=== PATIENT | male | born 1940 | race Caucasian/White ===

== ENCOUNTER → 2023-08-10 17:41 | Outpatient (REF) | payer MEDICARE, OTHER, SELFPAY ==
[2023-08-10 18:09] LABS: % Basophils 0.6 % (0-2); % Eosinophils 1.1 % (0-6); % Immature Granulocytes 0.3 % (0-0.5); % Lymphocytes 32.2 % (20.5-51.1); % Monocytes 14.6 % (1.7-9.3); % Neutrophils 51.2 % (42.2-75.2); Absolute Basophils 0.1 10^3/uL (0-0.2); Absolute Eosinophils 0.1 10^3/uL (0-0.7); Absolute Lymphocytes 2.6 10^3/uL (1.2-3.4); Absolute Monocytes 1.2 10^3/uL (0.1-0.6); Absolute Neutrophils 4.1 10^3/uL (1.4-6.5); Hematocrit 36.4 % (39.0-52.0); Hemoglobin 12.5 g/dL (13.0-18.0); Mean Corp Hgb Conc. 34.3 g/dL (33.0-37.0); Mean Corpuscular Hgb 32.7 pg (27.0-31.0); Mean Corpuscular Volume 95.3 fL (80.0-94.0); Mean Platelet Volume 9.7 fL (7.4-10.4); Nucleated Red Blood Cells % 0 % (-); Platelet Count 197 10^3/uL (130-400); Red Blood Cell Count 3.82 10^6/uL (4.70-6.10); Red Cell Dist. Width 14.6 % (11.5-14.5); Reticulocyte Count 1.4 % (0.4-2.8); White Blood Cell Count 7.9 10^3/uL (4.8-10.8)
[2023-08-10 18:30] LABS: ALT (SGPT) 39 U/L (0-50); AST (SGOT) 32 U/L (17-59); Albumin 3.8 g/dl (3.5-5.0); Alkaline Phosphatase 84 U/L (38-126); Blood Urea Nitrogen 38 mg/dl (9-20); Calcium 9.3 mg/dl (8.4-10.2); Carbon Dioxide 24 mmol/L (22-30); Chloride 103 mmol/L (98-107); Direct Bilirubin 0.4 mg/dl (0.0-0.4); Glucose 117 mg/dl (70-99); Potassium 4.3 mmol/L (3.5-5.1); Sodium 136 mmol/L (135-145); Total Bilirubin 0.4 mg/dl (0.2-1.3); Total Protein 7.2 g/dl (6.3-8.2); eGFR 42.75
[2023-08-10 18:31] LABS: LDH 232 U/L (120-246)
[2023-08-10 18:59] LABS: TSH Reflex To Free T4 5.59 uIU/ml (0.47-4.68)
[2023-08-10 19:28] LABS: Free T4 1.05 ng/dl (0.78-2.19)
[2023-08-12 15:47] LABS: Erythropoietin (EPO) 19 mU/mL (4-27)
[2023-08-12 19:27] LABS: Haptoglobin 269 mg/dL (30-200)
[2023-08-14 01:44] LABS: Albumin 3.67 g/dL (3.75-5.01); Alpha 1 Globulin 0.43 g/dL (0.19-0.46); Alpha 2 Globulin 1.01 g/dL (0.48-1.05); Free Kappa Light Chains,Quant 76.76 mg/L (3.30-19.40); Free Lambda Light Chains,Quant 32.78 mg/L (5.71-26.30); IgA 389 mg/dL (68-408); IgG 1083 mg/dL (768-1632); IgM 42 mg/dL (35-263); Immunofixation Electrophoresis IFE Done; Kappa/Lambda Fr Light Ratio 2.34 (0.26-1.65); Total Protein-Electrophoresis 7.1 g/dL (6.3-8.2)
== END ==
LOC: REG 17:41
PROVIDERS: ATTENDING PHYSICIAN Internal Medicine Hematology & Oncology; FAMILY PHYSICIAN Family Medicine
DX: D64.9 Anemia, unspecified (principal); D72.819 Decreased white blood cell count, unspecified
CPT/HCPCS: 36415; 80053; 82248; 82668; 82784; 83010; 83521; 83615; 84155; 84165; 84439; 84443; 85025; 85045; 86334; 86880

== ENCOUNTER → 2023-08-21 13:40 | Outpatient (REF) | payer MEDICARE, OTHER, SELFPAY | LOC: DHCBC MAIN 13:40 | PROVIDERS: ATTENDING PHYSICIAN Nurse Practitioner; FAMILY PHYSICIAN Family Medicine | DX: I35.0 Nonrheumatic aortic (valve) stenosis (principal) | CPT/HCPCS: 93306 ==

== ENCOUNTER → 2023-10-14 16:26 | Outpatient (REF) | payer MEDICARE, OTHER, SELFPAY ==
[2023-10-14 18:44] LABS: PSA, Total - Diagnostic 0.39 ng/ml (0.0-4.0)
== END ==
LOC: REG 16:26
PROVIDERS: ATTENDING PHYSICIAN Surgery; FAMILY PHYSICIAN Family Medicine
DX: N40.0 Benign prostatic hyperplasia without lower urinary tract symptoms (principal)
CPT/HCPCS: 36415; 84153

== ENCOUNTER → 2024-02-12 08:02 | Outpatient (REF) | payer MEDICARE, OTHER, SELFPAY ==
[2024-02-12 09:24] LABS: ALT (SGPT) 30 U/L (0-50); AST (SGOT) 30 U/L (17-59); Albumin 4.4 g/dl (3.5-5.0); Alkaline Phosphatase 74 U/L (38-126); Blood Urea Nitrogen 31 mg/dl (9-20); Carbon Dioxide 26 mmol/L (22-30); Chloride 105 mmol/L (98-107); Glucose 97 mg/dl (70-99); Potassium 4.2 mmol/L (3.5-5.1); Sodium 141 mmol/L (135-145); Total Bilirubin 0.5 mg/dl (0.2-1.3); Total Protein 7.2 g/dl (6.3-8.2); eGFR 54.51
[2024-02-12 09:35] LABS: Vitamin D, 25-OH*** 35.8 ng/mL (30-80)
[2024-02-13 09:38] LABS: Intact PTH 49.3 pg/ml (13.6-85.8)
[2024-02-14 03:03] LABS: Creatinine, Urine per Volume 73 mg/dL; NTx 35 (21-83)
== END ==
LOC: REG 08:02
PROVIDERS: ATTENDING PHYSICIAN Orthopaedic Surgery
DX: M81.0 Age-related osteoporosis without current pathological fracture (principal); E55.9 Vitamin D deficiency, unspecified; E83.51 Hypocalcemia; E67.3 Hypervitaminosis D; N28.81 Hypertrophy of kidney
CPT/HCPCS: 36415; 80053; 82306; 82523; 83970; 84075

== ENCOUNTER → 2024-02-16 09:39 | Outpatient (REF) | payer MEDICARE, OTHER, SELFPAY | LOC: HWRAD 09:39 | PROVIDERS: ATTENDING PHYSICIAN Orthopaedic Surgery; FAMILY PHYSICIAN Family Medicine | DX: M81.0 Age-related osteoporosis without current pathological fracture (principal) | CPT/HCPCS: 77080 ==

== ENCOUNTER → 2024-07-08 06:47 | Outpatient (REF) | payer MEDICARE, OTHER, SELFPAY | LOC: PAVMRI 06:47 | PROVIDERS: ATTENDING PHYSICIAN Family Medicine | DX: M54.50 Low back pain, unspecified (principal) | CPT/HCPCS: 72148 ==

== ENCOUNTER → 2024-08-01 10:09 | Outpatient (REF) | payer MEDICARE, OTHER, SELFPAY ==
[2024-08-01 13:01] LABS: Blood Urea Nitrogen 22 mg/dl (9-20); Calcium 9.6 mg/dl (8.4-10.2); Carbon Dioxide 25 mmol/L (22-30); Chloride 102 mmol/L (98-107); Glucose 98 mg/dl (70-99); HDL Cholesterol 56 mg/dl; LDL Cholesterol, Calculated 65 mg/dl; Potassium 4.6 mmol/L (3.5-5.1); Sodium 136 mmol/L (135-145); Total Cholesterol 138 mg/dl (50-199); Triglyceride 89 mg/dl (10-149); Very Low Density Lipoprotein 17 mg/dl (0-30); eGFR > 60.00
== END ==
LOC: REG 10:09
PROVIDERS: ATTENDING PHYSICIAN Student in an Organized Health Care Education/Training Program; FAMILY PHYSICIAN Family Medicine
DX: I25.10 Atherosclerotic heart disease of native coronary artery without angina pectoris (principal); I35.0 Nonrheumatic aortic (valve) stenosis
CPT/HCPCS: 36415; 80048; 80061

== ENCOUNTER → 2024-08-23 09:46 | Outpatient (REF) | payer MEDICARE, OTHER, SELFPAY | LOC: HWRAD 09:46 | PROVIDERS: ATTENDING PHYSICIAN Surgery; FAMILY PHYSICIAN Family Medicine | DX: Z87.442 Personal history of urinary calculi (principal) | CPT/HCPCS: 74176 ==

== ENCOUNTER → 2024-09-05 10:17 | Outpatient (REF) | payer MEDICARE, OTHER, SELFPAY | LOC: RCS 10:17 | PROVIDERS: ATTENDING PHYSICIAN Student in an Organized Health Care Education/Training Program; FAMILY PHYSICIAN Family Medicine | DX: I25.10 Atherosclerotic heart disease of native coronary artery without angina pectoris (principal); I63.9 Cerebral infarction, unspecified; I49.1 Atrial premature depolarization | CPT/HCPCS: 93225; 93226 ==

== ENCOUNTER → 2025-02-28 09:02 | Outpatient (REF) | payer MEDICARE, OTHER, SELFPAY | LOC: RAD 09:02 | PROVIDERS: ATTENDING PHYSICIAN Surgery Vascular Surgery; FAMILY PHYSICIAN Family Medicine | DX: I73.9 Peripheral vascular disease, unspecified (principal) | CPT/HCPCS: 93922; 93925 ==

== ENCOUNTER → 2025-05-06 10:57 | Outpatient (REF) | payer MEDICARE, OTHER, SELFPAY | LOC: RAD 10:57 | PROVIDERS: ATTENDING PHYSICIAN Family Medicine | DX: M25.551 Pain in right hip (principal) | CPT/HCPCS: 73502 ==

== ENCOUNTER 2025-05-08 13:37 | Inpatient (IN) | payer MEDICARE, OTHER, SELFPAY ==
[2025-05-08] VITALS (13 sets, daily range): BP systolic 120–172; BP diastolic 60–93; BMI 24.8; BMI 23.9
[2025-05-08 11:18] LABS: Glucose - Point of Care 145 mg/dl (70-99)
[2025-05-08 11:26] LABS: Glucose - Point of Care 130 mg/dl (70-99)
--- NOTE | 2025-05-08 11:29 | ED.CVA ---
History of Present Illness
<Sina Hernandez PA-C - Last Filed: 05/09/25 06:39>
General
Chief Complaint: CVA/TIA Symptoms
Source: patient
Exam Limitations: none
Time Seen by Provider: 05/08/25 11:26
Onset of Stroke Symptoms
Onset of symptoms known: Yes
Date of onset of symptoms: 05/08/25
History of Present Illness
History of Present Illness:
84-year-old male presents from home with his who states that the patient started speaking with slurred speech and she noticed a right sided droop in his face. She last saw him to be normal at 915 this morning. Patient does have a history of
strokes. Patient's believes that she is on a blood thinner but is not sure which one. Patient denies any significant pain. He denies a headache or vision change. No other complaints at this time
Past History
<Sina Hernandez PA-C - Last Filed: 05/09/25 06:39>
Past History
ED Past Medical History: CAD, Hypercholesterolemia, Other (Cervical DJD, pinched nerve in his neck with intermittent 'pins and needles ' in both upper extremities. Low back pain, gastritis), Other (Stress fractures middle and upper back) and Other
(Lumbar disc disease with L3-4 L4-5 bulging disks)
ED Past Surgical History: Appendectomy, Cardiac (Stent X1) and Other (Umbilcal hernia)
Social History
Tobacco: Former smoker
Alcohol: Occasional
Personal:
Living: with family
Employment: Employed
Phy Exam
<Sina Hernandez PA-C - Last Filed: 05/09/25 06:39>
Physical Exam
Physical Exam:
General: Well-appearing male no acute distress HEENT: Normal cephalic right sided facial droop noted pupils equal round reactive extract motions are intact
Heart: Regular rate and rhythm
Lungs: Clear no wheeze
Neurologic exam: Alert and oriented to person and place. There is a right sided facial droop. There is mild aphasia and dysarthria. No obvious drift on exam visual connelly intact. He is following commands. Finger-nose intact. Xvvf-iw-[id number] intact
Skin is warm no rash
Scores
<Sina Hernandez PA-C - Last Filed: 05/09/25 06:39>
NIH Stroke Score
Level of Consciousness: 0 - Alert
LOC Questions: 0-Answers both correctly
LOC Commands: 0-Performs both correctly
Best Horizontal Gaze: 0-Normal
Visual Connelly: 0=Normal, no visual loss
Facial Palsy: 2=Partial paralysis
Motor - Right Arm: 0=No drift 10 seconds
Motor - Left Arm: 0=No drift 10 seconds
Motor - Right Le-No drift 5 seconds
Motor - Left Le-No drift 5 seconds
Limb Ataxia: 0-Absent
Sensation: 0-Normal
Best Language: 1-Mild aphasia
Dysarthria: 1-Mild slurring
Extinction and Inattention: 0-No abnormality
NIH Total Score:: 4
<Sukhwinder Bhardwaj DO - Last Filed: 05/08/25 12:43>
NIH Stroke Score
NIH Total Score:: 4
Course
<Sina Hernandez PA-C - Last Filed: 05/09/25 06:39>
Orders/Labs/Results
Orders:
Orders
05/08/25 11:27
CT BRAIN PERF STROKE ALERT Urgent
Comment:
Reason For Exam: aphasia
CT HEAD STROKE ALERT W/o Cont Urgent
Comment:
Reason For Exam: aphasia
CT HEAD/NECK ANG STROKE ALERT Urgent
Comment:
Reason For Exam: aphasia
05/08/25 11:55
Complete Blood Count/With Diff Urgent
Comprehensive Metabolic Panel Urgent
Protime/PTT Urgent
05/08/25 12:08
Electrocardiogram (*1) Urgent
Reason for Study: TIA/Stroke
EKG- Treatment ONCE
05/08/25 13:07
Aspirin 325 mg PO NOW STA
05/08/25 13:26
Admit/Transfer Patient As Directed
Co-Sign Provider:
Level of Care: Inpatient admission
Assign to:: Telemetry
Physician / Group: tu fontenot
Diagnosis: right facial droop/slurring words conc Acute CVA
Reason for Telemetry: CVA/TIA
Date to Stop Telemetry: 05/11/25
Time to Stop Telemetry: 11:00
Reason for Hospitalization: right facial droop/slurring words conc Acute CVA
Expected length of stay greater than two midnights?: Yes
ELOS- Estimated Length of Stay in days: 3
I certify the patient meets the requirements for IP care: Yes
Code Status As Directed
Resuscitation Status: Full Code
05/08/25 13:28
PRN Pain Medication Management As Directed
May give lesser potent ordered pain med per pt: Yes
preference::
Protocol:: Medication orders for pain may be administered in a
manner that supports deferring to patient preference
when the pt is:
- Requesting an ordered lesser potent pain medication.
Least to most potent pain medications are defined
as: acetaminophen < NSAID < tramadol < opioids
(morphine, oxycodone, hydromorphone).
- Requesting a lesser dose of the same medication IF
ORDERED.
- Requesting a less intrusive route of administration
if both routes are prescribed by the provider (PO <
IV).
05/08/25 14:37
Activity As Directed
Activity Level: As Tolerated
Neurological Checks As Directed
Frequency: q4h
Pneumatic Compression Sleeves As Directed
Type: Knee high
Vital Signs As Directed
Frequency: Per unit guidelines
Pt Eval And Treat Routine
Activity Level: As Tolerated
Speech Therapy Eval & Treat Routine
DX Deep Vein Thrombosis Video Routine
05/08/25 18:00
Atorvastatin [Lipitor] 20 mg PO QPM
Tamsulosin [Flomax] 0.4 mg PO QPM
05/08/25 20:00
Vit C/Vit E/Lutein/Min/Slater-3 [Ocuvite Softgel] 1 cap PO BID
05/09/25 06:00
Cardiovascular Evaluation IN AM
Complete Blood Count/With Diff IN AM
Comprehensive Metabolic Panel IN AM
Hgba1c [Glycohemoglobin (HgbA1c)] IN AM
Magnesium IN AM
Levothyroxine [Synthroid] 25 mcg PO DAILY@0600
05/09/25 08:00
Calcium Carbonate [Oscal Tomas 500] 500 mg PO DAILY
Cholecalciferol (Vitamin D3) [VITAMIN D3 (cholecalciferol)] 25 mcg PO DAILY
Clopidogrel Bisulfate [Plavix] 75 mg PO DAILY
NIFEdipine EXTENDED RELEASE [Procardia Xl (Extended Release)] 30 mg PO DAILY
omega 0-mpl-zvq-fish oil [Fish Oil] 1 ea PO DAILY
05/10/25 06:00
Complete Blood Count/With Diff IN AM
Comprehensive Metabolic Panel IN AM
05/11/25 06:00
Complete Blood Count/With Diff IN AM
Comprehensive Metabolic Panel IN AM
05/11/25 11:00
DC Protocol for Telemetry ONCE
Abnormal Lab Results
05/08/25 05/08/25 05/08/25
11:16 11:25 11:55
RBC 4.04 L 10^6/uL
(4.70-6.10)
MCV 97.3 H fL
(80.0-94.0)
MCH 33.4 H pg
(27.0-31.0)
RDW 15.0 H %
(11.5-14.5)
MPV 10.5 H fL
(7.4-10.4)
Absolute Monos (auto) 0.7 H 10^3/uL
(0.1-0.6)
Monocytes % 10.3 H %
(1.7-9.3)
BUN 21 H mg/dl
(9-20)
Glucose 129 H mg/dl
(70-99)
POC Glucose 145 H mg/dl 130 H mg/dl
(70-99) (70-99)
05/08/25 11:55
05/08/25 11:55
Vital Signs
Initial and Last Documented VS:
Initial Vital Signs
Temp Pulse Resp BP Pulse Ox
97.7 F 109 16 172/93 98
05/08/25 11:16 05/08/25 11:16 05/08/25 11:16 05/08/25 11:16 05/08/25 11:16
Last Documented Vital Signs
Temp Pulse Resp BP Pulse Ox
98.3 F 87 18 134/78 94
05/09/25 03:30 05/09/25 03:30 05/09/25 03:30 05/09/25 03:30 05/09/25 03:30
<Sukhwinder Bhardwaj, DO - Last Filed: 05/08/25 12:43>
Orders/Labs/Results
Orders:
Orders
05/08/25 11:27
CT BRAIN PERF STROKE ALERT Urgent
Comment:
Reason For Exam: aphasia
CT HEAD STROKE ALERT W/o Cont Urgent
Comment:
Reason For Exam: aphasia
CT HEAD/NECK ANG STROKE ALERT Urgent
Comment:
Reason For Exam: aphasia
05/08/25 11:55
Complete Blood Count/With Diff Urgent
Comprehensive Metabolic Panel Urgent
Protime/PTT Urgent
05/08/25 12:08
Electrocardiogram (*1) Urgent
Reason for Study: TIA/Stroke
EKG- Treatment ONCE
05/08/25 13:07
Aspirin 325 mg PO NOW STA
05/08/25 13:26
Admit/Transfer Patient As Directed
Co-Sign Provider:
Level of Care: Inpatient admission
Assign to:: Telemetry
Physician / Group: tu fontenot
Diagnosis: right facial droop/slurring words conc Acute CVA
Reason for Telemetry: CVA/TIA
Date to Stop Telemetry: 05/11/25
Time to Stop Telemetry: 11:00
Reason for Hospitalization: right facial droop/slurring words conc Acute CVA
Expected length of stay greater than two midnights?: Yes
ELOS- Estimated Length of Stay in days: 3
I certify the patient meets the requirements for IP care: Yes
Code Status As Directed
Resuscitation Status: Full Code
05/08/25 13:28
PRN Pain Medication Management As Directed
May give lesser potent ordered pain med per pt: Yes
preference::
Protocol:: Medication orders for pain may be administered in a
manner that supports deferring to patient preference
when the pt is:
- Requesting an ordered lesser potent pain medication.
Least to most potent pain medications are defined
as: acetaminophen < NSAID < tramadol < opioids
(morphine, oxycodone, hydromorphone).
- Requesting a lesser dose of the same medication IF
ORDERED.
- Requesting a less intrusive route of administration
if both routes are prescribed by the provider (PO <
IV).
05/08/25 14:37
Activity As Directed
Activity Level: As Tolerated
Neurological Checks As Directed
Frequency: q4h
Pneumatic Compression Sleeves As Directed
Type: Knee high
Vital Signs As Directed
Frequency: Per unit guidelines
Pt Eval And Treat Routine
Activity Level: As Tolerated
Speech Therapy Eval & Treat Routine
DX Deep Vein Thrombosis Video Routine
05/08/25 18:00
Atorvastatin [Lipitor] 20 mg PO QPM
Tamsulosin [Flomax] 0.4 mg PO QPM
05/08/25 20:00
Vit C/Vit E/Lutein/Min/Slater-3 [Ocuvite Softgel] 1 cap PO BID
05/09/25 06:00
Cardiovascular Evaluation IN AM
Complete Blood Count/With Diff IN AM
Comprehensive Metabolic Panel IN AM
Hgba1c [Glycohemoglobin (HgbA1c)] IN AM
Magnesium IN AM
Levothyroxine [Synthroid] 25 mcg PO DAILY@0600
05/09/25 08:00
Calcium Carbonate [Oscal Tmoas 500] 500 mg PO DAILY
Cholecalciferol (Vitamin D3) [VITAMIN D3 (cholecalciferol)] 25 mcg PO DAILY
Clopidogrel Bisulfate [Plavix] 75 mg PO DAILY
NIFEdipine EXTENDED RELEASE [Procardia Xl (Extended Release)] 30 mg PO DAILY
omega 4-wpk-zik-fish oil [Fish Oil] 1 ea PO DAILY
05/10/25 06:00
Complete Blood Count/With Diff IN AM
Comprehensive Metabolic Panel IN AM
05/11/25 06:00
Complete Blood Count/With Diff IN AM
Comprehensive Metabolic Panel IN AM
05/11/25 11:00
DC Protocol for Telemetry ONCE
Abnormal Lab Results
05/08/25 05/08/25 05/08/25
11:16 11:25 11:55
RBC 4.04 L 10^6/uL
(4.70-6.10)
MCV 97.3 H fL
(80.0-94.0)
MCH 33.4 H pg
(27.0-31.0)
RDW 15.0 H %
(11.5-14.5)
MPV 10.5 H fL
(7.4-10.4)
Absolute Monos (auto) 0.7 H 10^3/uL
(0.1-0.6)
Monocytes % 10.3 H %
(1.7-9.3)
BUN 21 H mg/dl
(9-20)
Glucose 129 H mg/dl
(70-99)
POC Glucose 145 H mg/dl 130 H mg/dl
(70-99) (70-99)
05/08/25 11:55
05/08/25 11:55
Vital Signs
Initial and Last Documented VS:
Initial Vital Signs
Temp Pulse Resp BP Pulse Ox
97.7 F 109 16 172/93 98
05/08/25 11:16 05/08/25 11:16 05/08/25 11:16 05/08/25 11:16 05/08/25 11:16
Last Documented Vital Signs
Temp Pulse Resp BP Pulse Ox
98.3 F 87 18 134/78 94
05/09/25 03:30 05/09/25 03:30 05/09/25 03:30 05/09/25 03:30 05/09/25 03:30
<Sina Hernandez PA-C - Last Filed: 05/09/25 06:39>
MDM/Problems Addressed
Differential Diagnosis Includes:
Patient presented with abrupt onset of confusion slurred speech facial droop at 915 this morning. Confirm with pharmacy that the patient is on clopidogrel and aspirin but no other anticoagulants. He was called a stroke alert upon initial
assessment and sent to CAT scan for CT of head CT angio of head and neck as well as perfusion study.
<Sina Hernandez PA-C - Last Filed: 05/09/25 06:39>
*Pulse Oximetry
SaO2: 98
Oxygen Mode of Delivery: Room air
<Sukhwinder Bhardwaj DO - Last Filed: 05/08/25 12:43>
*Pulse Oximetry
Patient hypoxic: no
*Critical Care Note
Total Time (30-74mins, 75-104mins- exclusive of procedures): 30
comment:
Critical care statement: A total of 30 minutes of critical care time was provided for this patient. This includes management of unstable vital signs, evaluation of the patient at bedside, reviewing the patient's pertinent medical records, discussion
with consultants, review of old EKGs and review of pertinent medical records. This time with separate from time utilized to perform the aforementioned documented procedures
<Sina Hernandez PA-C - Last Filed: 05/09/25 06:39>
Update Note
Update Note:
No bleed noted on plain head CT. CT angio of head and neck and perfusion study pending. Reassessed patient after CAT scan. Symptoms are now completely resolved. Facial droop is gone. He has no more aphasia or dysarthria. Neurology into the
room and assessing patient. Initially he may have been a TNK candidate based on timing and symptoms however symptoms have since resolved. Hold off on TNK for now but will admit to hospital for further stroke workup
Notified by admitting provider that the patient's symptoms may have returned. Spoke with neurology again who reevaluated the patient and feels as though he is back to baseline so that is his . Still will hold off on TNK.
ED Attending Note
<Sina Hernandez PA-C - Last Filed: 05/09/25 06:39>
-
Portions of this chart may have been created with voice recognition software.� Occasional wrong word or��sound alike� substitutions may have occurred due to the inherent limitations of voice recognition software.
<Sukhwinder Bhardwaj DO - Last Filed: 05/08/25 12:43>
ED Attending Note
Patient seen and examined by attending physician: Yes
ED Attending Note:
I have reviewed and agree with history treatment plan by Sina Hernandez PA-C. My exam revealed
Physical Exam
General: no apparent distress, not acutely ill
Neck: supple. no meningeal signs. normal posterior pharynx
Heart: s1/s2 regular rate and rhythm, no murmur. equal radial
pulses.
HEENT: Pupils equal round reactive to light, EOMI, hard of hearing
Lungs: no acute respiratory distress. clear bilaterally
Abdomen: normal bowel sounds. not tender. no CVAT
Neuro: alert and oriented. no focal neurological deficits cranial nerves II through XII intact
Skin: no rash
Psychiatric: well kept. interactive and cooperative
Extremities: no edema. no calf tenderness. negative homans. good distal pulses
84-year-old male with TIA. Symptoms resolved in the ED. He was seen on stroke alert by neurology, no acute findings on CT angiography or CT perfusion. Admit to hospitalist for further workup.
Discharge Plan
Departure
Patient Disposition: Admit
Date of Disposition: 05/08/25
Time of Disposition: 12:02
Presentation/result/management discussed w/ accepting MD/DO: Hospitalist
Discharge Problem:
Brain TIA
Interventions
Interventions:
*Risk Screen - Suicide Last Done: 05/08/25 11:16
*General Assessment Last Done: 05/08/25 11:16
*Neglect/Abuse Screening Last Done: 05/08/25 11:16
*ED COVID-19 Vaccine History Last Done: 05/08/25 11:16
*ED Influenza Vaccine History Last Done: 05/08/25 11:16
*Nursing Disposition Last Done: 05/08/25 14:39
ED- Pulmonary Assessment Last Done: 05/08/25 12:15
ED- Neurological Assessment Last Done: 05/08/25 12:05
ED- Cardiac Assessment Last Done: 05/08/25 12:15
Discharge Date and Time
Discharge Date/Time: 05/08/25 14:40
--- NOTE | 2025-05-08 11:57 | W.PN.UPDATE ---
Addendum entered and electronically signed by Farzad Prasad MD 05/08/25 15:28:
Stat H & N CTA
CTA Head: Moderate atherosclerotic calcifications of the bilateral carotid siphons with resultant mild stenosis.
CTA Neck: Atherosclerotic calcifications of the bilateral carotid bifurcation/proximal ICA with resultant approximately 30% stenosis of the proximal left ICA.
Extensive biapical pleural parenchymal scarring as well as mild emphysematous changes.
Nodules within the right upper and lower lobes measuring up to 9.9 cm which are similar in appearance to prior PET in 2022.
PE:
Gen: NAD
HEENT: hard of hearing, Chr R Eyes ptosis , Chr R angle of the mouth subtle drop. No tongue deviation on protrusion
Neck: supple , no neck bruit bilaterally
Lungs: symmetric AE
Cor: RRR
Abdomen:�soft NT
Original Note:
Update Note
Progress Note Update
This note serves as an addendum to the H&P by industrial gas servicer helper CYNTHIA�
Annie Jaroso
HPI
84M Former smoker, R hand dominant R Caudate stroke( 01/11/21) HX pHTN, CAD with stent on Plavix, HLD on Atorvastatin, Prediabetes seen at ER:
- came home from shopping at 10am and notice abnormal speech - slow and non sensical
- noted R right eye droop which report he has had that but it looks worse
- rep[orts last known normal was 915am
NIH score 4 per ER initial NIH
ROS:
denies any significant pain
denies a headache or vision change.
At ER:
Stat HCT
- No acute intracranial hemorrhage.
- There is apparent hypodensity within the left superior aspect of the abhi which may be artifactual although a subacute infarction is possible. Consider further evaluation with MRI.
Pending
Initial eval by ER:
- per ER CYNTHIA Rapidly resolving Neuro symptoms thus hold off TNK per ER HAIR DESIGNER
1310H upon hospitalist and CYNTHIA examination:
- suboptimal fluency of language function in both expressive and receptive
- difficult repeating 3-4 syllable words
- Follow motor commands accurately
- Limited comprehension
- Underlying hard of hearing
- Chr R eye ptosis per
- subtle R angle of the mouth drop - chronic per
- Hospitalist HAIR DESIGNER at bed side
1120H:
Case hospitalist dw ER CYNTHIA for Neuro re eval to reconsult Neuro in case TNK is indicated
PHX
Cardiac (Stent X1)
Hypercholesterolemia
Cervical DJD, pinched nerve in his neck with intermittent 'pins and needles ' in both upper extremities.
Low back pain, gastritis
Stress fractures middle and upper back
Lumbar disc disease with L3-4 L4-5 bulging disks
Appendectomy
Umbilical hernia
Relevant VS
Temp Pulse Resp BP Pulse Ox
97.7 F 81 20 145/87 95
05/08/25 11:16 05/08/25 11:53 05/08/25 11:53 05/08/25 11:53 05/08/25 11:53
PE
Gen: NAD
HEENT: hard of hearing, Chr R Eyes ptosis , Chr R angle of the mouth subtle drop. No tongue deviation on protrusion
Neck: supple , no neck bruit bilaterally
Lungs:
Cor:
Abdomen:�
MS:
Psych:
Hospitalist assessment INSPECTOR C[employer] WORKING at 1310 H
- suboptimal fluency of language function in both expressive and receptive
- difficult repeating 3-4 syllable words
- difficult to translate abstract ( [employer] fl[employer] targeter - he answered in word salads)
- Follow motor commands accurately
- Limited comprehension
- Underlying hard of hearing
- Chr R eye ptosis per
- subtle R angle of the mouth drop - chronic per
- Symmetric b/l motor strength
- Hospitalist CYNTHIA at bed side and her exam is the same
Relevant Data : Pending admission Data
Labs
08/01/24 05/08/25
10:50 11:55
WBC 7.0
Hgb 13.5
Plt Count 183
INR 1.09
BUN 22 H 21 H
Creatinine 1.2 1.3
eGFR > 60.00 54.17
Glucose 129 H
Stat HCT
- No acute intracranial hemorrhage.
- There is apparent hypodensity within the left superior aspect of the abhi which may be artifactual although a subacute infarction is possible.
Consider further evaluation with MRI.
Pending stat H & N CTA
Pending Brain perfusion
01/13/21 Brain MRI
8 mm acute/subacute nonhemorrhagic infarct in the tail of the caudate on the right
There is mild cortical and cerebellar atrophy with mild nonspecific white matter changes as described above.
Last hospitalist admission: 01/11/2021 - 01/13/2021
DISCHARGE DIAGNOSES:
1. Acute right caudate stroke.
2. Impaired fasting glucose.
3. Essential hypertension.
4. Coronary artery disease.
ASSESSMENT & PLAN
Stoke alert
Acute CVA suspect @ left superior aspect of the abhi
- on Plavix
- at within TNK window < 4.5 Hrs from onset - NIH 4 on arrival
- BP 145/87
- Prior HX MRI POS acute/subacute nonhemorrhagic infarct in the tail of the caudate on the R
- HX established ASCVD
- Neuro consulted - - Per ER HAIR DESIGNER due to rapidly resolved Neuro Sx - decided not to give TNK
Noted suboptimal fluency of language function in both expressive and receptive Upon Hospitalist and Hospitalist AP exam
- Reconsulted Neuro for evaluation - no interval chage
- c/w Plavix and loading dose ASA at ER
- MRI brain in AM
p HTN - currently Normotensive
- permissive BP < 220/125 post TNK
- Observe BP in ICU
HLD
- Escalade or switch to Rosuvastatin
HX CAD with stent x1
- Hold Plavix s/p TNK
Hypothyroid
- on LT4
DVT Px: SCD
Full code
IP TLM
[2025-05-08 12:06] LABS: Hematocrit 39.3 % (39.0-52.0); Hemoglobin 13.5 g/dL (13.0-18.0); Mean Corp Hgb Conc. 34.4 g/dL (33.0-37.0); Mean Corpuscular Volume 97.3 fL (80.0-94.0); Nucleated Red Blood Cells % 0 % (-); Platelet Count 183 10^3/uL (130-400); Red Cell Dist. Width 15.0 % (11.5-14.5)
[2025-05-08 12:17] LABS: INR 1.09; PT 14.4 Sec (11.4-14.6)
[2025-05-08 12:18] LABS: ALT (SGPT) 26 U/L (0-50); APTT 32.5 Sec (23.4-35.0); AST (SGOT) 27 U/L (17-59); Albumin 4.4 g/dl (3.5-5.0); Alkaline Phosphatase 71 U/L (38-126); Blood Urea Nitrogen 21 mg/dl (9-20); Calcium 9.6 mg/dl (8.4-10.2); Carbon Dioxide 27 mmol/L (22-30); Chloride 104 mmol/L (98-107); Estimated Creatinine Clearance 42 ml/min; Glucose 129 mg/dl (70-99); Potassium 4.4 mmol/L (3.5-5.1); Sodium 136 mmol/L (135-145); Total Protein 7.5 g/dl (6.3-8.2); eGFR 54.17
--- NOTE | 2025-05-08 12:21 | HPS.HSE ---
Family Physician
-
Family Physician: Krishan Uriostegui, DO
Chief Complaint
-
Right sided facial droop, slurred speech
History of Present Illness
84-year-old male from home where he lives with his who noticed at approximately 10 AM he had slurred speech with a right sided facial droop. She reports last seeing him normal at 915 this morning. He does have past medical history of strokes
and is on Plavix 75 mg daily and statin. On the ER symptoms did resolve however on my exam they have been waxing and waning with word finding, word salad, difficulty with comprehension, subtle right sided facial droop, chronic right upper eyelid
ptosis times many years from prior surgery. Patient's Cathie is at bedside confirming all information
The patient denies fever, chills, sore throat, headache, blurred vision, chest pain, palpitations, cough, shortness breath, abdominal pain, nausea, vomiting, diarrhea, urinary symptoms. 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
retinal issues, LYTTON.
Medical History
Past Medical History
Past Medical History: Reports Other
Additional Past Medical History:
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
HTN
HLD
CAD/cardiac stent x 1
Aortic stenosis status post TAV
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
Chronic low back pain
Gastritis
Stress fractures thoracic spine
Lumbar disc disease L3-L4, L4-L5
Former smoker
Right eye retinal issues per history
LYTTON
Past Surgical History: Reports Other
Additional Past Surgical History:
TAVR
Angioplasty with stent December 2017
Tonsillectomy
Appendectomy
Umbilical hernia repair
bilateral cataract extraction L1-L2 compression fracture repair 2021
Lithotripsy 2017
Social History
Tobacco: Former Smoker (Quit 38 years ago)
Alcohol: None
Personal:
Living: With Family ( )
Employment: Retired
Family History
Family History: Not pertinent
Allergies / Home Medications
Allergies reflects when Allergies were last updated in [facility].
Home Medications with original date entered in [facility]
Allergy/Medication List:
Allergies
Allergy/AdvReac Type Severity Reaction Status Date / Time
metoprolol Allergy Rash Verified 05/08/25 11:43
Sulfa (Sulfonamide Allergy 'throat Verified 10/06/22 10:02
Antibiotics) inflamed'
Home Medications
tamsulosin 0.4 mg capsule 0.4 mg PO QPM Urinary Issue 01/04/18
vitamin B complex 1 tab PO DAILY Supplement 01/04/18
vitamins A,C,H-necf-kgmwaq 4,296 mcg-226 mg-90 mg capsule (PreserVision AREDS) 1 cap PO BID Supplement 01/04/18
atorvastatin 20 mg tablet 20 mg PO QPM High cholesterol 02/27/21
omega 7-ghs-zzy-fish oil 300 mg-1,000 mg capsule (Fish Oil) 1 ea PO DAILY Supplement 02/27/21
calcium carbonate (Calcium 600) 600 mg PO DAILY Supplement 07/21/22
clopidogrel 75 mg tablet 75 mg PO DAILY #30 tabs 07/21/22
cholecalciferol (vitamin D3) 25 mcg (1,000 unit) tablet 25 mcg PO DAILY Supplement 05/08/25
ibuprofen 400 mg tablet 400 mg PO DAILYPRN PRN back pain 05/08/25
levothyroxine 25 mcg tablet 25 mcg PO DAILY Thyroid 05/08/25
meloxicam 15 mg tablet 15 mg PO DAILYPRN PRN back pain 05/08/25
mometasone 0.1 % topical cream 1 applic topical DAILYPRN PRN itchy bumps 05/08/25
nifedipine 30 mg tablet,extended release 30 mg PO DAILY Blood Pressure 05/08/25
sildenafil 100 mg tablet 100 mg PO DAILY PRN sexual activity 05/08/25
Review of Systems
-
History Source: Patient and Family ( Cathie)
A 12 point ROS was completed and negative except as noted: Yes
Constitutional: Denies Fever or Chills
EENT: Reports Other (Intermittent slurring of speech, word salad, difficulty word finding, difficulty with comprehension, chronic right eyelid ptosis, slight right corner of mouth droop); Denies Sore Throat or Runny Nose
Respiratory: Denies Cough or Trouble Breathing
Cardiac: Denies Chest Pain, Diaphoresis, Palpitations or Syncope
Abdomen/GI: Denies Abdominal Pain, Nausea, Vomiting, Diarrhea or Constipated
: Denies Dysuria, Frequency, Flank Pain or Incontinence
Musculoskeletal: Denies Joint Pain or Edema
Skin: Denies Itching or Rash
Neurological: Denies Dizzy, Headache or Weakness
Endocrine: Reports No Symptoms
Hematologic/Lymphatic: Reports No Symptoms
Psych: Reports Calm
Physical Exam
Vital Signs
Vital Signs
Temp Pulse Resp BP Pulse Ox
97.7 F 81 20 145/87 95
05/08/25 11:16 05/08/25 11:53 05/08/25 11:53 05/08/25 11:53 05/08/25 11:53
Physical Exam
General: Comfortable
HEENT: NormoCephalic, Moist mucous membranes, PERRLA (Chronic upper right lid ptosis), [place] Conjunctivae and Other (Right corner of mouth subtle droop, word salad, difficulty word finding, occasional slurred speech, difficult comprehension of
questions); No Atraumatic
Respiratory: Clear; No Wheezes, Rales or Rhonchi
Cardiac: S1/S2 and Regular Rhythm; No Murmur, Rub, Gallop or Peripheral Edema
Breast: Deferred by me
GI: Soft, Non Tender, Non Distended, Normal Bowel Sounds and No Hepatosplenomegaly
Rectal: Deferred by Provider
Genito-urinary: Deferred by me
Musculoskeletal: No Clubbing, No Cyanosis and No Edema
Skin: Warm and Dry; No Rash
Neuro: AO x 3 (With intermittent word salad, difficulty word finding, occasional slurred speech, difficult comprehension of questions), Slurred Speech, Facial Droop (Right corner of mouth) and Other (Chronic right upper eyelid ptosis, LYTTON bilateral
hearing aids in place); No Tremors or Sedated
Psych: Calm
Laboratory Results
-
05/08/25 11:55
05/08/25 11:55
Laboratory Results
PT 14.4 Sec (11.4-14.6) 05/08/25 11:55
INR 1.09 05/08/25 11:55
APTT 32.5 Sec (23.4-35.0) 05/08/25 11:55
Total Bilirubin 0.5 mg/dl (0.2-1.3) 05/08/25 11:55
AST 27 U/L (17-59) 05/08/25 11:55
ALT 26 U/L (0-50) 05/08/25 11:55
Alkaline Phosphatase 71 U/L (38-126) 05/08/25 11:55
Data Reviewed
-
CT Scan: Report Reviewed by me
Lab Data: Labs Reviewed by me
Impression/Plan
-
Impression/plan:
Admit to telemetry
# Acute CVA right cerebellum with right Facial droop/slurred speech
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
- Consult Neuro
-CTA head and neck
- Check lipid profile, HgbA1c
-Continue atorvastatin 20 mg every afternoon
-Continue Plavix 75 mg daily
-Patient given aspirin 325 mg in ER continue aspirin 81 mg daily
- PT/OT/case management
- Speech swallow eval
MRI brain at 1703 p.m.: 5 mm acute infarct right cerebellum no hemorrhage
CT head:
1. No acute intracranial hemorrhage
2. Hypodensity left superior aspect of abhi which could be subacute infarct
CTA Head: Moderate atherosclerotic calcifications of the bilateral carotid siphons with resultant mild stenosis.
CTA Neck: Atherosclerotic calcifications of the bilateral carotid bifurcation/proximal ICA with resultant approximately
30% stenosis of the proximal left ICA.
Extensive biapical pleural parenchymal scarring as well as mild emphysematous changes.
Nodules within the right upper and lower lobes measuring up to 9.9 cm which are similar in appearance to prior PET in 2022.
2D echo 08/21/2023: EF 55 to 60%, mild RV enlargement, status post TAVR
#Known pulmonary nodules right upper lobe
#Emphysema�mild
#HTN�benign
Continue nifedipine 30 mg daily
#HLD
cont lipitor 20 mg hs, check lipid profile
#CAD/cardiac stent x 1
cont statin, plavix, nifedipine
#Aortic stenosis status post TAVR
#BPH
Continue tamsulosin
#Gastritis
cont calcium carbonate
#Hypothyroidism
cont levothyroxine 25 meq
Other PMH:
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
Chronic low back pain
Stress fractures thoracic spine
Lumbar disc disease L3-L4, L4-L5
Former smoker
right eye retinal issues-continue PreserVision
LYTTON
DVT prophylaxis
SCDs
FULL code
--- NOTE | 2025-05-08 13:48 | EDCM ---
Reviewed chart , met with pt and bedside in ED. They live in 2 SH, 1 [address], full bath on first floor, full flight to second floor bedroom.
Independent in ADLs, personal care and ambulation at baseline. No assistive devices, only DME is BP cuff.
Confirms prescription coverage.
No hx VN or SNF.
PCP: Krishan Uriostegui
Pharmacy: [facility]
Disposition pending ongoing medical evaluation, CM will continue to follow for all discharge planning needs.
[2025-05-08] MEDS: ASPIRIN 325 MG PO (14:16)
--- NOTE | 2025-05-08 15:31 | CON.NEURO4 ---
Consultation - Neurology 4
-
CONSULTING PHYSICIAN: Dr. Mick Lin
REFERRING PHYSICIAN: Annie MCHUGH
DICTATED BY: Dr. Mick Lin
DATE/TIME OF REQUEST: 05/08/2025
DATE/TIME OF CONSULTATION: 05/08/2025
Reason for Consultation: Right-sided facial droop and slurred speech.
ASSESSMENT AND PLAN:
The patient is an 84 years old male who presented to the hospital after his noted that at approximately 10 AM the morning he developed slurred speech and also had a right-sided facial droop. The last known normal was at around 9:15 AM this
morning. In the ER the patient symptoms resolved however he kept having waxing and waning difficulty with word finding but he returned to his baseline. The patient's also thinks that he has returned to his baseline.
. MRI of the brain showed a 5 mm acute, nonhemorrhagic infarct in the right cerebellar hemisphere medially.
The patient had a small 5 mm acute, nonhemorrhagic infarct in the right cerebellar hemisphere medially.
The patient was not a candidate for thrombolytic therapy as his NIHSS was 0.
I had a detailed discussion with the patient and his regarding the assessment and management plan and they verbalized understanding of our discussion.
. CT of the head did not show an acute intracranial abnormality.
. CTA of the head and neck did not show a large vessel occlusion.
. The patient will be on the stroke pathway and he will be on aspirin 81 mg daily, Plavix 75 mg daily and atorvastatin 40 mg daily. The patient also received 300 mg of clopidogrel x 1 and 325 mg of aspirin x 1.
. Echocardiogram.
History of Present Illness:
The patient is an 84 years old male who presented to the hospital after his noted that at approximately 10 AM the morning he developed slurred speech and also had a right-sided facial droop. The last known normal was at around 9:15 AM this
morning. In the ER the patient symptoms resolved however he kept having waxing and waning difficulty with word finding but he returned to his baseline. The patient's also thinks that he has returned to his baseline.
Past Medical History:
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
HTN
HLD
CAD/cardiac stent x 1
TAVR
Review of System
The patient denies headache, dizziness, chest pain, shortness of breath, fever, chills, nausea, vomiting and diarrhea.
Neurologic Examination:
The patient is alert and oriented x 3,
Speech is clear,
The cranial nerves II to XII are grossly intact, the visual irby are full,
The motor strength is grossly 5/5 bilaterally,
Sensations are intact bilaterally,
The cerebellar examination does not show limb ataxia.
Vital Signs and Labs
-
Vital Signs and Labs:
Vital Signs
Temp Pulse Resp BP Pulse Ox
36.6 C 72 18 163/87 96
05/08/25 15:12 05/08/25 15:12 05/08/25 15:12 05/08/25 15:12 05/08/25 15:12
Lab Results
05/08/25 11:55
05/08/25 11:55
PT 14.4 Sec (11.4-14.6) 05/08/25 11:55
INR 1.09 05/08/25 11:55
APTT 32.5 Sec (23.4-35.0) 05/08/25 11:55
Sodium 136 mmol/L (135-145) 05/08/25 11:55
Potassium 4.4 mmol/L (3.5-5.1) 05/08/25 11:55
BUN 21 mg/dl (9-20) H 05/08/25 11:55
Glucose 129 mg/dl (70-99) H 05/08/25 11:55
Calcium 9.6 mg/dl (8.4-10.2) 05/08/25 11:55
Medications
-
Active Medications
Generic Name Dose Route Start Last Admin
Trade Name Freq PRN Reason Stop Dose Admin
Acetaminophen 650 mg 05/08/25 16:53
Acetaminophen 325 Mg Tablet PO 06/05/25 16:52
Q6HPRN PRN
mild pain/ fever>100.5F
Aspirin 81 mg 05/09/25 08:00
Aspirin 81 Mg Chewable Tablet PO 06/06/25 07:59
DAILY KARLIE
Atorvastatin Calcium 20 mg 05/08/25 18:00 05/08/25 17:32
Atorvastatin (Lipitor) 20 Mg Tablet PO 06/05/25 17:59 20 mg
QPM KARLIE Administration
Calcium Carbonate 500 mg 05/09/25 08:00
Calcium Carbonate 500 Mg Tablet PO 06/06/25 07:59
DAILY KARLIE
Cholecalciferol 25 mcg 05/09/25 08:00
Cholecalciferol (Vitamin D3) 25 Mcg Tablet (1,000 Units) PO 06/06/25 07:59
DAILY KARLIE
Clopidogrel Bisulfate 75 mg 05/09/25 08:00
Clopidogrel 75 Mg Tablet PO 06/06/25 07:59
DAILY KARLIE
Levothyroxine Sodium 25 mcg 05/09/25 06:00
Levothyroxine 25 Mcg Tablet PO 06/06/25 05:59
DAILY@0600 KARLIE
Nifedipine 30 mg 05/09/25 08:00
Nifedipine 30 Mg Extended Release Tablet PO 06/06/25 07:59
DAILY KARLIE
Sodium Chloride 0 flush 05/08/25 15:00
Sodium Chloride 0.9% (Flush) Syringe IV 06/05/25 14:59
PER PROTOCOL KARLIE
Sodium Chloride 0 flush 05/08/25 15:00
Sodium Chloride 0.9% (Flush) Syringe IV 06/05/25 14:59
PER PROTOCOL KARLIE
Tamsulosin HCl 0.4 mg 05/08/25 18:00 05/08/25 17:32
Tamsulosin 0.4 Mg Capsule PO 06/05/25 17:59 0.4 mg
QPM KARLIE Administration
Vitamin C/Vitamin E 1 cap 05/08/25 20:00
Vit C/Vit E/Lutein/Min/[place]-3 (Ocuvite) Capsule PO 06/05/25 19:59
BID KARLIE
Home Medications
�Medication �Instructions �Recorded
tamsulosin 0.4 mg capsule 0.4 mg PO QPM Urinary Issue 01/04/18
vitamin B complex 1 tab PO DAILY Supplement 01/04/18
vitamins A,C,H-jqki-rdnrgm 4,296 1 cap PO BID Supplement 01/04/18
mcg-226 mg-90 mg capsule
(PreserVision AREDS)
atorvastatin 20 mg tablet 20 mg PO QPM High cholesterol 02/27/21
omega 3-dgs-iwj-fish oil 300 1 ea PO DAILY Supplement 02/27/21
mg-1,000 mg capsule (Fish Oil)
calcium carbonate (Calcium 600) 600 mg PO DAILY Supplement 07/21/22
clopidogrel 75 mg tablet 75 mg PO DAILY #30 tabs 07/21/22
cholecalciferol (vitamin D3) 25 25 mcg PO DAILY Supplement 05/08/25
mcg (1,000 unit) tablet
ibuprofen 400 mg tablet 400 mg PO DAILYPRN PRN back pain 05/08/25
levothyroxine 25 mcg tablet 25 mcg PO DAILY Thyroid 05/08/25
meloxicam 15 mg tablet 15 mg PO DAILYPRN PRN back pain 05/08/25
mometasone 0.1 % topical cream 1 applic topical DAILYPRN PRN 05/08/25
itchy bumps
nifedipine 30 mg tablet,extended 30 mg PO DAILY Blood Pressure 05/08/25
release
sildenafil 100 mg tablet 100 mg PO DAILY PRN sexual activity 05/08/25
[2025-05-08] MEDS: PLAVIX 300 MG PO (16:52)
[2025-05-08] MEDS: LIPITOR 20 MG PO (17:32)
[2025-05-08] MEDS: TYLENOL 1000 MG PO (17:32)
[2025-05-08] MEDS: FLOMAX 0.4 MG PO (17:32)
[2025-05-08] MEDS: OCUVITE SOFTGEL 1 CAP PO (19:51)
[2025-05-09] VITALS (7 sets, daily range): BP systolic 117–134; BP diastolic 65–92; PULSE 84
[2025-05-09] MEDS: SYNTHROID 25 MCG PO (05:57)
[2025-05-09 08:00] LABS: Hematocrit 35.7 % (39.0-52.0); Hemoglobin 12.4 g/dL (13.0-18.0); Mean Corp Hgb Conc. 34.7 g/dL (33.0-37.0); Mean Corpuscular Volume 96.2 fL (80.0-94.0); Nucleated Red Blood Cells % 0 % (-); Platelet Count 163 10^3/uL (130-400); Red Cell Dist. Width 14.4 % (11.5-14.5)
[2025-05-09 08:52] LABS: ALT (SGPT) 22 U/L (0-50); AST (SGOT) 22 U/L (17-59); Albumin 3.7 g/dl (3.5-5.0); Alkaline Phosphatase 73 U/L (38-126); Blood Urea Nitrogen 15 mg/dl (9-20); Calcium 9.1 mg/dl (8.4-10.2); Carbon Dioxide 24 mmol/L (22-30); Chloride 104 mmol/L (98-107); Estimated Creatinine Clearance 52 ml/min; Glucose 90 mg/dl (70-99); HDL Cholesterol 50 mg/dl; LDL Cholesterol, Calculated 52 mg/dl; Magnesium 2.0 mg/dl (1.6-2.3); Potassium 4.1 mmol/L (3.5-5.1); Sodium 133 mmol/L (135-145); Total Protein 6.5 g/dl (6.3-8.2); Very Low Density Lipoprotein 16 mg/dl (0-30); eGFR > 60.00
[2025-05-09] MEDS: PROCARDIA XL (EXTENDED RELEASE) 30 MG PO (10:23)
[2025-05-09] MEDS: LOW STRENGTH ASPIRIN 81 MG PO (10:23)
[2025-05-09] MEDS: PLAVIX 75 MG PO (10:24)
[2025-05-09] MEDS: VITAMIN D3 (cholecalciferol) 25 MCG PO (10:24)
[2025-05-09] MEDS: OSCAL CAL 500 500 MG PO (10:24)
[2025-05-09] MEDS: OCUVITE SOFTGEL 1 CAP PO ×2 (10:24→19:37)
[2025-05-09 10:25] LABS: Glycohemoglobin (HgbA1c) 5.8 % (4.0-5.9)
--- NOTE | 2025-05-09 12:11 | PTOTSP ---
Speech Therapy Evaluation:
Pt presents w/ acute (CVA) and chronic (R caudate CVA, former smoker) risk factors for aspiration/dysphagia. However, no reports of difficulty w/ oral intake, no overt s/sx of aspiration observed during bedside swallow evaluation, pt is on room air,
WBC WNL, and no reported hx of PNAs. ST to F/U to monitor diet level tolerance and pt presentation given acute CVA.
Renny Cognitive Assessment administered to further assess cognitive domains. Pt's score of 19/30 indicates a moderate cognitive impairment, with noted deficits in immediate and delayed recall, executive functioning, and language fluency.
Assessment results potentially impacted as pt is DEERING. Of note, this is a decline in cognitive function compared to score of 21/21 on BCAT in 2020.
Recommendations:
1. Regulars, Thins
2. Medications as best tolerated
3. Strategies: Slow rate, alternating sips and bites
4. F/U w/ ST at the acute care level to observe diet level tolerance and for further cognitive-linguistic assessment/treatment.
--- NOTE | 2025-05-09 12:25 | W.PN.HOSP.TC ---
Today's Communication/Plan
-
DC post echo
Assessment / Plan
Assessment / Plan
HEAD CT 05/08
IMPRESSION:
No acute intracranial hemorrhage.
There is apparent hypodensity within the left superior aspect of the abhi which may be artifactual although a subacute infarction is possible. Consider further evaluation with MRI.
HEAD/NECK CTA 05/08
IMPRESSION:
CTA Head: Moderate atherosclerotic calcifications of the bilateral carotid siphons with resultant mild stenosis.
CTA Neck: Atherosclerotic calcifications of the bilateral carotid bifurcation/proximal ICA with resultant approximately 30% stenosis of the proximal left ICA.
Extensive biapical pleural parenchymal scarring as well as mild emphysematous changes. Nodules within the right upper and lower lobes measuring up to 9.9 cm which are similar in appearance to prior PET in 2022.
Brain MRI 05/08
IMPRESSION:
5 mm acute, nonhemorrhagic infarct in the right cerebellar hemisphere medially. No other acute infarct identified.
Cerebral atrophy along with evidence of chronic small vessel ischemia in cerebral white matter and abhi.
Right Cerebellar ischemic infarct
Dysarthria - now resolved
-patient was on Plavix 75mg PO QD at home
-tele with SVT, no afib
-TTE ordered, also discussing with Cardiology arrangement of outpatient monitor versus Linq
-continue dual antiPLT (for 3 weeks) then daily Plavix
-increase Lipitor to 40mg
-PT/OT/ST - no needs
Known pulmonary nodules right upper lobe
Essential HTN - [employer] Nifedipine
HLD - increase Lipitor
CAD
Hx PCI
-DU[employer] Plavix/Statin
Aortic Stenosis s/p TAVR
BPH - [employer] Flomax
Hypothyroidism - [employer] Synthroid
Other PMH:
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
Chronic low back pain
Stress fractures thoracic spine
Lumbar disc disease L3-L4, L4-L5
Former smoker
right eye retinal issues-continue PreserVision
[place]
possible DC later today or tomorrow
Anticipated Discharge: Within 24 hours
Subjective/Interval History
-
Date of Service: May 09, 2025
speech deficits resolved
ambulating OK
Objective Data
-
Labs:
Laboratory Results
05/09/25
06:48
WBC 6.0
Hgb 12.4 L
Hct 35.7 L
Plt Count 163
Sodium 133 L
Potassium 4.1
Chloride 104
Carbon Dioxide 24
BUN 15
Creatinine 1.1
Glucose 90
Calcium 9.1
Total Bilirubin 0.5
AST 22
ALT 22
Alkaline Phosphatase 73
Vital Signs:
Vital Signs
Temp Pulse Resp BP Pulse Ox
98.0 F 51 17 121/67 97
05/09/25 11:09 05/09/25 11:09 05/09/25 11:09 05/09/25 11:09 05/09/25 11:09
I&O
05/08/25 05/09/25 05/10/25
06:59 06:59 06:59
Intake Total 480 / 480
Balance 480 / 480
Review of Systems
-
History Source: Patient
All other systems: Reviewed and negative
Physical Exam
-
General: No Apparent Distress
HEENT: PERRLA
Respiratory: Clear to Auscultation; Negative Wheezes
Cardiac: Regular Rhythm and S1/S2
GI: Soft and Nontender
Musculoskeletal: No Edema
Skin: Warm
Neuro: AO x 3 and Other (mild right sided ptosis and facial asymmetry (chronic), no pronator drift, no ataxia )
Psych: Calm
Data Reviewed
-
Diagnostic Radiology: Report Reviewed by me
Labs: Labs Reviewed by me
[2025-05-09 12:44] LABS: Ferritin 50.1 ng/ml (17.9-464.0)
[2025-05-09 12:59] LABS: Vitamin B12 > 1000 pg/ml (239-931)
--- NOTE | 2025-05-09 15:13 | CM ---
Spoke with in room.
Cathie and patient are waiting on MD decision when he can be discharge .
PT eval done indicated no needs .
Offered VN declined need. She will drive him home at pr.
PLAN Home no needs
[2025-05-09 15:21] LABS: Folate 6.6 ng/ml (2.76-20)
--- NOTE | 2025-05-09 17:20 | W.PN.NEURO.1 ---
Today's Communication / Plan
-
. The patient will be on the stroke pathway and he will be on aspirin 81 mg daily, Plavix 75 mg daily and atorvastatin 40 mg daily.
. Recommend 30-day Holter monitor at the time of discharge.
. Follow-up with neurology in 4 to 6 weeks.
. Will sign off. Please call if you have any question.
Subjective/Objective
Subjective Data
Date of Service: May 09, 2025
The patient is an 84 years old male with a past medical history of TAVR, hypertension, hyperlipidemia, coronary artery disease and CVA, who presented to the hospital after his noted that at approximately 10 AM yesterday morning on 05/08/2025,
he developed slurred speech and also had a right-sided facial droop. The last known normal was at around 9:15 AM on 05/08/2025. In the ER the patient symptoms resolved however he kept having waxing and waning difficulty with word finding but he
returned to his baseline. The patient's also thinks that he has returned to his baseline.
. MRI of the brain showed a 5 mm acute, nonhemorrhagic infarct in the right cerebellar hemisphere medially.
. The echocardiogram was done today that showed a LVEF of 55 to 60%.
The patient had a small 5 mm acute, nonhemorrhagic infarct in the right cerebellar hemisphere medially.
The patient was not a candidate for thrombolytic therapy as his NIHSS was 0.
I had a detailed discussion with the patient and his regarding the assessment and management plan and they verbalized understanding of our discussion.
. CT of the head did not show an acute intracranial abnormality.
. CTA of the head and neck did not show a large vessel occlusion.
. The patient will be on the stroke pathway and he will be on aspirin 81 mg daily, Plavix 75 mg daily and atorvastatin 40 mg daily.
. Recommend 30-day Holter monitor at the time of discharge.
. Follow-up with neurology in 4 to 6 weeks.
. Will sign off. Please call if you have any question.
Objective Data
Vital Signs
Temp Pulse Resp BP Pulse Ox
37.2 C 84 18 117/65 95
05/09/25 15:19 05/09/25 15:19 05/09/25 15:19 05/09/25 15:19 05/09/25 15:19
Lab Results
05/09/25 06:48
05/09/25 06:48
PT 14.4 Sec (11.4-14.6) 05/08/25 11:55
INR 1.09 05/08/25 11:55
APTT 32.5 Sec (23.4-35.0) 05/08/25 11:55
Sodium 133 mmol/L (135-145) L 05/09/25 06:48
Potassium 4.1 mmol/L (3.5-5.1) 05/09/25 06:48
BUN 15 mg/dl (9-20) 05/09/25 06:48
Glucose 90 mg/dl (70-99) 05/09/25 06:48
Calcium 9.1 mg/dl (8.4-10.2) 05/09/25 06:48
LDL Cholesterol, Calc 52 mg/dl 05/09/25 06:48
Vitamin B12 > 1000 pg/ml (239-931) H 05/09/25 06:48
Patient Allergies
metoprolol Allergy (Verified 05/08/25 11:43)
Rash
Sulfa (Sulfonamide Antibiotics) Allergy (Verified 10/06/22 10:02)
'throat inflamed'
Vital Signs and Labs
-
Vital Signs and Labs:
Vital Signs
Temp Pulse Resp BP Pulse Ox
37.2 C 84 18 117/65 95
05/09/25 15:19 05/09/25 15:19 05/09/25 15:19 05/09/25 15:19 05/09/25 15:19
Lab Results
05/09/25 06:48
05/09/25 06:48
PT 14.4 Sec (11.4-14.6) 05/08/25 11:55
INR 1.09 05/08/25 11:55
APTT 32.5 Sec (23.4-35.0) 05/08/25 11:55
Sodium 133 mmol/L (135-145) L 05/09/25 06:48
Potassium 4.1 mmol/L (3.5-5.1) 05/09/25 06:48
BUN 15 mg/dl (9-20) 05/09/25 06:48
Glucose 90 mg/dl (70-99) 05/09/25 06:48
Calcium 9.1 mg/dl (8.4-10.2) 05/09/25 06:48
LDL Cholesterol, Calc 52 mg/dl 05/09/25 06:48
Vitamin B12 > 1000 pg/ml (239931) H 05/09/25 06:48
Medications
-
Active Medications
Generic Name Dose Route Start Last Admin
Trade Name Freq PRN Reason Stop Dose Admin
Acetaminophen 650 mg 05/08/25 16:53
Acetaminophen 325 Mg Tablet PO 06/05/25 16:52
Q6HPRN PRN
mild pain/ fever>100.5F
Aspirin 81 mg 05/09/25 08:00 05/09/25 10:23
Aspirin 81 Mg Chewable Tablet PO 06/06/25 07:59 81 mg
DAILY KARLIE Administration
Atorvastatin Calcium 40 mg 05/09/25 18:00
Atorvastatin (Lipitor) 40 Mg Tablet PO 06/06/25 17:59
QPM KARLIE
Calcium Carbonate 500 mg 05/09/25 08:00 05/09/25 10:24
Calcium Carbonate 500 Mg Tablet PO 06/06/25 07:59 500 mg
DAILY KARLIE Administration
Cholecalciferol 25 mcg 05/09/25 08:00 05/09/25 10:24
Cholecalciferol (Vitamin D3) 25 Mcg Tablet (1,000 Units) PO 06/06/25 07:59 25 mcg
DAILY KARLEI Administration
Clopidogrel Bisulfate 75 mg 05/09/25 08:00 05/09/25 10:24
Clopidogrel 75 Mg Tablet PO 06/06/25 07:59 75 mg
DAILY KARLIE Administration
Levothyroxine Sodium 25 mcg 05/09/25 06:00 05/09/25 05:57
Levothyroxine 25 Mcg Tablet PO 06/06/25 05:59 25 mcg
DAILY@0600 KARLIE Administration
Nifedipine 30 mg 05/09/25 08:00 05/09/25 10:23
Nifedipine 30 Mg Extended Release Tablet PO 06/06/25 07:59 30 mg
DAILY KARLIE Administration
Sodium Chloride 0 flush 05/08/25 15:00
Sodium Chloride 0.9% (Flush) Syringe IV 06/05/25 14:59
PER PROTOCOL KARLIE
Sodium Chloride 0 flush 05/08/25 15:00
Sodium Chloride 0.9% (Flush) Syringe IV 06/05/25 14:59
PER PROTOCOL KARLIE
Tamsulosin HCl 0.4 mg 05/08/25 18:00 05/08/25 17:32
Tamsulosin 0.4 Mg Capsule PO 06/05/25 17:59 0.4 mg
QPM KARLIE Administration
Vitamin C/Vitamin E 1 cap 05/08/25 20:00 05/09/25 10:24
Vit C/Vit E/Lutein/Min/[place]-3 (Ocuvite) Capsule PO 06/05/25 19:59 1 cap
BID KARLIE Administration
Home Medications
�Medication �Instructions �Recorded
tamsulosin 0.4 mg capsule 0.4 mg PO QPM Urinary Issue 01/04/18
vitamin B complex 1 tab PO DAILY Supplement 01/04/18
vitamins A,C,J-nnfc-hhxzoj 4,296 1 cap PO BID Supplement 01/04/18
mcg-226 mg-90 mg capsule
(PreserVision AREDS)
omega 5-qoy-cyw-fish oil 300 1 ea PO DAILY Supplement 02/27/21
mg-1,000 mg capsule (Fish Oil)
calcium carbonate (Calcium 600) 600 mg PO DAILY Supplement 07/21/22
clopidogrel 75 mg tablet 75 mg PO DAILY #30 tabs 07/21/22
cholecalciferol (vitamin D3) 25 25 mcg PO DAILY Supplement 05/08/25
mcg (1,000 unit) tablet
levothyroxine 25 mcg tablet 25 mcg PO DAILY Thyroid 05/08/25
mometasone 0.1 % topical cream 1 applic topical DAILYPRN PRN 05/08/25
itchy bumps
nifedipine 30 mg tablet,extended 30 mg PO DAILY Blood Pressure 05/08/25
release
sildenafil 100 mg tablet 100 mg PO DAILY PRN sexual activity 05/08/25
aspirin 81 mg chewable tablet 81 mg PO DAILY #19 tabs 05/09/25
atorvastatin 20 mg tablet 40 mg (2 x 20 mg) PO QPM High 05/09/25
cholesterol #30 tabs
[2025-05-09] MEDS: LIPITOR 40 MG PO (17:27)
[2025-05-09] MEDS: FLOMAX 0.4 MG PO (17:27)
[2025-05-09] MEDS: TYLENOL 650 MG PO (19:38)
[2025-05-10 03:37] VITALS: BP 122/73
[2025-05-10] MEDS: SYNTHROID 25 MCG PO (05:25)
[2025-05-10 06:26] LABS: Hematocrit 36.7 % (39.0-52.0); Hemoglobin 12.5 g/dL (13.0-18.0); Mean Corp Hgb Conc. 34.1 g/dL (33.0-37.0); Mean Corpuscular Volume 95.1 fL (80.0-94.0); Nucleated Red Blood Cells % 0 % (-); Platelet Count 163 10^3/uL (130-400); Red Cell Dist. Width 14.5 % (11.5-14.5)
[2025-05-10 07:05] LABS: ALT (SGPT) 21 U/L (0-50); AST (SGOT) 21 U/L (17-59); Albumin 3.7 g/dl (3.5-5.0); Alkaline Phosphatase 71 U/L (38-126); Blood Urea Nitrogen 19 mg/dl (9-20); Calcium 9.0 mg/dl (8.4-10.2); Carbon Dioxide 24 mmol/L (22-30); Chloride 105 mmol/L (98-107); Estimated Creatinine Clearance 52 ml/min; Glucose 98 mg/dl (70-99); Potassium 4.0 mmol/L (3.5-5.1); Sodium 134 mmol/L (135-145); Total Protein 6.5 g/dl (6.3-8.2); eGFR > 60.00
[2025-05-10 07:55] VITALS: BP 105/71
--- NOTE | 2025-05-10 09:20 | PN.CDI ---
CDI
- -
CDI:
Physician Documentation Request
Admit Date: 05/08/25 13:37
Dear Doctor Laith,
Please review the following and provide your response in the progress notes.
Clinical Indicators:
Pt admitted with Right Cerebellar ischemic infarct
Sodium levels are as below
Laboratory Tests
05/09/25 05/10/25
06:48 05:26
Sodium 133 L 134 L
Based on the above, could you clarify in the progress notes, the appropriate diagnosis, if significant, that supports the above abnormalities and additional evaluation, monitoring and/or treatment rendered:
Hyponatremia
Abnormal lab value
Other ( please specify)
Use of terms such as suspected, likely, concern for, or probable (associated with a specific diagnosis that is being evaluated, monitored, or treated as if it exists) are acceptable and can be coded in the inpatient setting, when documented at the
time of discharge.
Thank you,
Shanice Perla RN
CDI Specialist
[place] [facility]
Please use your independent medical judgment in providing your response.
[2025-05-10] MEDS: LOW STRENGTH ASPIRIN 81 MG PO (10:01)
[2025-05-10] MEDS: PROCARDIA XL (EXTENDED RELEASE) 30 MG PO (10:01)
[2025-05-10] MEDS: VITAMIN D3 (cholecalciferol) 25 MCG PO (10:01)
[2025-05-10] MEDS: OCUVITE SOFTGEL 1 CAP PO (10:01)
[2025-05-10] MEDS: PLAVIX 75 MG PO (10:01)
[2025-05-10] MEDS: OSCAL CAL 500 500 MG PO (10:01)
--- NOTE | 2025-05-10 11:51 | W.DS.TRANS ---
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
-
Discharge Instructions:
Discharge Diagnosis/Procedures right 5mm cerebellar stroke
Diet Low Cholesterol
Activity As tolerated
Driving Restrictions Not until seen by your Dr
Bathing Restrictions None
Others Tests Outpatient cardiac monitoring was recommended.
This is being arranged by your cardiology office
. You will receive a phone call
Instructions:
Stand-Alone Forms:
Changes to Home Medications: Yes
Discharge Medications:
DC Medications w/original date entered in [employer]
tamsulosin 0.4 mg capsule 0.4 mg PO QPM Urinary Issue 01/04/18
vitamin B complex 1 tab PO DAILY Supplement 01/04/18
vitamins A,C,V-xtcv-jqviql 4,296 mcg-226 mg-90 mg capsule (PreserVision AREDS) 1 cap PO BID Supplement 01/04/18
omega 5-mkc-alz-fish oil 300 mg-1,000 mg capsule (Fish Oil) 1 ea PO DAILY Supplement 02/27/21
calcium carbonate (Calcium 600) 600 mg PO DAILY Supplement 07/21/22
clopidogrel 75 mg tablet 75 mg PO DAILY #30 tabs 07/21/22
cholecalciferol (vitamin D3) 25 mcg (1,000 unit) tablet 25 mcg PO DAILY Supplement 05/08/25
levothyroxine 25 mcg tablet 25 mcg PO DAILY Thyroid 05/08/25
mometasone 0.1 % topical cream 1 applic topical DAILYPRN PRN itchy bumps 05/08/25
nifedipine 30 mg tablet,extended release 30 mg PO DAILY Blood Pressure 05/08/25
sildenafil 100 mg tablet 100 mg PO DAILY PRN sexual activity 05/08/25
aspirin 81 mg chewable tablet 81 mg PO DAILY #19 tabs 05/09/25
atorvastatin 20 mg tablet 40 mg (2 x 20 mg) PO QPM High cholesterol #30 tabs 05/09/25
Home Medication Changes
Take aspirin 81mg daily with Plavix x 18 more days (3 weeks total)
Continue Plavix 75mg daily
Do not take NSAIDs (motrin, Meloxicam, Ibuprofen, Advil) while on aspirin and Plavix
Increase Lipitor from 20mg in evenings to 40mg in evenings
Pending Results: No
[2025-05-10 11:55] VITALS: BP 102/64
--- NOTE | 2025-05-10 12:05 | CM ---
Chart reviewed. Patient stable for d/c home today
Met w/ patient and spouse bedside, agreeable to d/c. Declined HC services. Spouse agreeable to ST script per ST recommendation
TT hospitalist for script
IMM verbally reviewed, copy provided, copy on chart
Plan: Home, OP ST
--- NOTE | 2025-05-10 13:13 | W.PN.HOSP.TC ---
Addendum entered and electronically signed by Sophie Ozuna MD 05/10/25 15:21:
Hyponatremia
-stable
Original Note:
Today's Communication/Plan
-
OK for DC home today
Assessment / Plan
Assessment / Plan
HEAD CT 05/08
IMPRESSION:
No acute intracranial hemorrhage.
There is apparent hypodensity within the left superior aspect of the abhi which may be artifactual although a subacute infarction is possible. Consider further evaluation with MRI.
HEAD/NECK CTA 05/08
IMPRESSION:
CTA Head: Moderate atherosclerotic calcifications of the bilateral carotid siphons with resultant mild stenosis.
CTA Neck: Atherosclerotic calcifications of the bilateral carotid bifurcation/proximal ICA with resultant approximately 30% stenosis of the proximal left ICA.
Extensive biapical pleural parenchymal scarring as well as mild emphysematous changes. Nodules within the right upper and lower lobes measuring up to 9.9 cm which are similar in appearance to prior PET in 2022.
Brain MRI 05/08
IMPRESSION:
5 mm acute, nonhemorrhagic infarct in the right cerebellar hemisphere medially. No other acute infarct identified.
Cerebral atrophy along with evidence of chronic small vessel ischemia in cerebral white matter and abhi.
Right Cerebellar ischemic infarct
Dysarthria - now resolved
-patient was on Plavix 75mg PO QD at home
-tele with SVT, no afib
-TTE results above
-patient to get outpatient cardiac monitoring
-continue dual antiPLT (for 3 weeks) then daily Plavix
-increase Lipitor to 40mg
-PT/OT/ST - no needs outpatient speech
Known pulmonary nodules right upper lobe
Essential HTN - BODY WELDER Nifedipine
HLD - increase Lipitor
CAD
Hx PCI
-BODY WELDER Plavix/Statin
Aortic Stenosis s/p TAVR
BPH - BODY WELDER Flomax
Hypothyroidism - BODY WELDER Synthroid
Other PMH:
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
Chronic low back pain
Stress fractures thoracic spine
Lumbar disc disease L3-L4, L4-L5
Former smoker
right eye retinal issues-continue PreserVision
[place]
possible DC later today or tomorrow
Anticipated Discharge: Today
Subjective/Interval History
-
Date of Service: May 10, 2025
overall feeling better
feels ready for discharge
no neurological changes overnight
Objective Data
-
Labs:
Laboratory Results
05/10/25
05:26
WBC 6.2
Hgb 12.5 L
Hct 36.7 L
Plt Count 163
Sodium 134 L
Potassium 4.0
Chloride 105
Carbon Dioxide 24
BUN 19
Creatinine 1.1
Glucose 98
Calcium 9.0
Total Bilirubin 0.4
AST 21
ALT 21
Alkaline Phosphatase 71
Vital Signs:
Vital Signs
Temp Pulse Resp BP Pulse Ox
98.2 F 89 18 102/64 94
05/10/25 11:55 05/10/25 11:55 05/10/25 11:55 05/10/25 11:55 05/10/25 11:55
I&O
05/09/25 05/10/25 05/11/25
06:59 06:59 06:59
Intake Total 480 / 480 240 / 240
Balance 480 / 480 240 / 240
Review of Systems
-
History Source: Patient
All other systems: Reviewed and negative
Physical Exam
-
General: No Apparent Distress
HEENT: PERRLA
Respiratory: Clear to Auscultation; Negative Wheezes
Cardiac: Regular Rhythm and S1/S2
GI: Soft and Nontender
Musculoskeletal: No Edema
Skin: Warm
Neuro: AO x 3 and Other (mild right sided ptosis and facial asymmetry (chronic), no pronator drift, no ataxia )
Psych: Calm
Data Reviewed
-
Diagnostic Radiology: Report Reviewed by me
Labs: Labs Reviewed by me
--- NOTE | 2025-05-10 15:09 | W.DCSUMMARY ---
Discharge Summary
Discharge Data
Date of Admission: 05/08/25
Date of Discharge: 05/10/25
-
Pending Results: No
Hospital Course
Discharging Physician : Dr. Sophie Ozuna
Disposition : home
Primary care physician : Dr. Krishan Uriostegui
Principal Discharge diagnosis : Right Cerebellar Infarct
Hospital Course :
Mr. Dontae Chu is a 84 yo man with hx tobacco use, CVA, HTN, CAD on Plavix, s/p TAVR presents with abnormal speech and increased right eye ptosis. NIH score 4. Head CT with possible subacute infarction superior aspect of abhi. Patient was admitted
to medicine with Neurology consulting. MRI with finding 5mm right cerebellar infarct. Aspirin added to Plavix, to continue DAPT x 3 weeks then Plavix alone. Dose of Lipitor increased. His Prenatal Teacher will arrange outpatient cardiac monitoring
to rule out afib.
Patient's deficits resolved prior to discharge. He worked well with PT/OT.
Time spent on discharge was 31 minutes.
Important imaging findings :
HEAD CT 05/08
IMPRESSION:
No acute intracranial hemorrhage.
There is apparent hypodensity within the left superior aspect of the abhi which may be artifactual although a subacute infarction is possible. Consider further evaluation with MRI.
HEAD/NECK CTA 05/08
IMPRESSION:
CTA Head: Moderate atherosclerotic calcifications of the bilateral carotid siphons with resultant mild stenosis.
CTA Neck: Atherosclerotic calcifications of the bilateral carotid bifurcation/proximal ICA with resultant approximately 30% stenosis of the proximal left ICA.
Extensive biapical pleural parenchymal scarring as well as mild emphysematous changes. Nodules within the right upper and lower lobes measuring up to 9.9 cm which are similar in appearance to prior PET in 2022.
Brain MRI 05/08
IMPRESSION:
5 mm acute, nonhemorrhagic infarct in the right cerebellar hemisphere medially. No other acute infarct identified.
Cerebral atrophy along with evidence of chronic small vessel ischemia in cerebral white matter and abhi.
TTE 05/09/25
SUMMARY
1. Normal LV size and function without regional wall motion normalities.
2. LVEF is 55-60% by visual estimation.
3. Mildly dilated RV with normal systolic function.
4. S/p TAVR 26 mm with mean gradient 10 mmHg no significant regurgitation. Normally functioning.
5. Mild to moderate tricuspid regurgitation. Normal estimated PASP at 34 mmHg.
6. Compared to prior from August 21, 2023 TR is now mild to moderate, previously mild.
Interatrial Septum:
The interatrial septum appears normal and intact, with no evidence of interatrial shunting.
Procedure findings :
Discharge Plan
-
Patient Disposition: Home (Routine Discharge)
Discharge Diagnosis/Procedures: right 5mm cerebellar stroke
Diet: Low Cholesterol
Activity: As tolerated
Driving Restrictions: Not until seen by your Dr
Bathing Restrictions: None
Others Tests: Outpatient cardiac monitoring was recommended. This is being arranged by your cardiology office. You will receive a phone call
Referrals:
Daniele Hyatt MD [Active, Cardiology]
Krishan Uriostegui DO [Family Provider, Family Practice] - in less than 1 week
Additional Discharge Medication Instructions: Take aspirin 81mg daily with Plavix x 18 more days (3 weeks total)
Continue Plavix 75mg daily
Do not take NSAIDs (motrin, Meloxicam, Ibuprofen, Advil) while on aspirin and Plavix
Increase Lipitor from 20mg in evenings to 40mg in evenings
Prescriptions:
New
aspirin 81 mg Tablet,Chewable
81 mg PO DAILY Qty: 19 0RF
(DME) speech therapy
See Rx Instructions .Route .MEDSUPPLY Qty: 1 0RF
Rx Instructions:
outpatient speech therapy
Continued
tamsulosin 0.4 MG capsule
0.4 mg PO QPM
vitamin B complex 1 TAB tablet
1 tab PO DAILY
PreserVision AREDS 1 CAP capsule
1 cap PO BID
omega 5-cwm-jee-fish oil [Fish Oil] 1 EACH capsule
1 ea PO DAILY
calcium carbonate [Calcium 600] 600 mg calcium (1,500 mg) Tablet
600 mg PO DAILY
clopidogrel 75 MG tablet
75 mg PO DAILY Qty: 30 0RF
sildenafil 100 mg Tablet
100 mg PO DAILY PRN (Reason: sexual activity)
levothyroxine 25 mcg Tablet
25 mcg PO DAILY
nifedipine 30 MG tablet extended release
30 mg PO DAILY
mometasone 0.1 % Cream
1 applic TOPICAL DAILYPRN PRN (Reason: itchy bumps)
cholecalciferol (vitamin D3) 25 mcg (1,000 unit) Tablet
25 mcg PO DAILY
Changed
atorvastatin 20 MG tablet
40 mg PO QPM Qty: 30 0RF
Discontinued
meloxicam 15 mg Tablet
15 mg PO DAILYPRN PRN (Reason: back pain)
Rx Instructions:
Pt prefers ibuprofen.
ibuprofen 400 mg Tablet
400 mg PO DAILYPRN PRN (Reason: back pain)
Discharge Orders:
Discharge Patient (As Directed); Ordered 05/10/25
Ordered By: Sophie Ozuna
Discharge Date and Time
Discharge Date/Time: 05/10/25 13:30
Print Language: TURKISH
== END 2025-05-10 13:30 | disposition home or self-care (01) | DRG 65 ==
LOC: 4 EAST ACU 13:37
PROVIDERS: Clinical Nurse Specialist Family Health; ADMITTING PHYSICIAN Internal Medicine; ATTENDING PHYSICIAN Student in an Organized Health Care Education/Training Program; EMERGENCY PHYSICIAN Emergency Medicine; FAMILY PHYSICIAN Family Medicine
DX: I63.541 Cerebral infarction due to unspecified occlusion or stenosis of right cerebellar artery (principal); E87.1 Hypo-osmolality and hyponatremia; I47.10 Supraventricular tachycardia, unspecified; J43.9 Emphysema, unspecified; I25.10 Atherosclerotic heart disease of native coronary artery without angina pectoris; N40.0 Benign prostatic hyperplasia without lower urinary tract symptoms; K29.70 Gastritis, unspecified, without bleeding; E03.9 Hypothyroidism, unspecified; M47.22 Other spondylosis with radiculopathy, cervical region; G89.29 Other chronic pain; M51.9 Unspecified thoracic, thoracolumbar and lumbosacral intervertebral disc disorder; I10 Essential (primary) hypertension; Z79.02 Long term (current) use of antithrombotics/antiplatelets; Z79.890 Hormone replacement therapy; Z79.899 Other long term (current) drug therapy; Z87.891 Personal history of nicotine dependence; Z95.2 Presence of prosthetic heart valve
CPT/HCPCS: 0042T; 70450; 70496; 70498; 70551; 73502; 80053; 80061; 82607; 82728; 82746; 82962; 83036; 83735; 84443; 85025; 85610; 85730; 92523; 92610; 93005; 93306; 97162; 99291; Q9967

== ENCOUNTER 2025-05-15 06:45 | Day surgery (SDC) | payer MEDICARE, OTHER, SELFPAY ==
[2025-05-15 07:09] VITALS: BMI 22.0
--- NOTE | 2025-05-15 10:09 | ITS.CL.IMPLP ---
Food Mobile Driver - Implant Loop
Implant Loop
Procedure Report:
Date of Procedure: May 15, 2025.
Procedure: Insertable Loop Recorder Implant.
Indication: Embolic stroke of unknown source.
Performing physician: Jose Manuel Lorenzo MD, [facility].
Implant: [employer]; Reveal LINQII; Model# [id number]; Serial# [id number].
Technique: The patient was prepped and draped in the usual fashion. A time-out was performed. No intravenous sedation was administered. Local anesthetic was applied to the left pre-pectoral subcutaneous tissue. Using the insertion kit an incision
was made left of the midline in the fourth intercostal space and the device was implanted subcutaneously and directed towards the nipple. Hemostasis was excellent. The skin was closed with steri-strips. The estimated blood loss was less than 1 ml.
There were no complications. No fluoroscopy. R waves measured 0.35 mV and P waves were visible.
Final Programming: Detections: Afib, tachy at 160 bpm, [place] at 30 bpm, pause at 3 sec.
Conclusion: Uncomplicated insertable loop implant.
Recommendation: Routine post-insertable loop care. The device is MRI conditional without a waiting period and up to 3 Marci.
cc: Daniele Hyatt MD and Krishan Uriostegui DO..
== END 2025-05-15 08:10 | disposition home or self-care (01) ==
LOC: CATH 06:45
PROVIDERS: ATTENDING PHYSICIAN Internal Medicine Cardiovascular Disease; FAMILY PHYSICIAN Family Medicine; OTHER PHYSICIAN Student in an Organized Health Care Education/Training Program
DX: Z09 Encounter for follow-up examination after completed treatment for conditions other than malignant neoplasm (principal); I69.392 Facial weakness following cerebral infarction; I69.328 Other speech and language deficits following cerebral infarction; I10 Essential (primary) hypertension; Z87.891 Personal history of nicotine dependence
CPT/HCPCS: 33285; C1764

== ENCOUNTER 2025-06-02 19:11 | Inpatient (IN) | payer MEDICARE, OTHER, SELFPAY ==
[2025-06-02] VITALS (16 sets, daily range): BP systolic 125–168; BP diastolic 56–93; BMI 23.0
[2025-06-02 16:13] LABS: Glucose - Point of Care 118 mg/dl (70-99)
--- NOTE | 2025-06-02 16:15 | ED.CVA ---
History of Present Illness
General
Chief Complaint: CVA/TIA Symptoms
Source: spouse
Exam Limitations: clinical condition
Time Seen by Provider: 06/02/25 16:04
Onset of Stroke Symptoms
Onset of symptoms known: Yes
Date of onset of symptoms: 06/02/25
History of Present Illness
History of Present Illness:
See MDM
Past History
Past History
ED Past Medical History: CAD, Hypercholesterolemia, Other (Cervical DJD, pinched nerve in his neck with intermittent 'pins and needles ' in both upper extremities. Low back pain, gastritis), Other (Stress fractures middle and upper back) and Other
(Lumbar disc disease with L3-4 L4-5 bulging disks)
ED Past Surgical History: Appendectomy, Cardiac (Stent X1) and Other (Umbilcal hernia)
Social History
Tobacco: Former smoker
Alcohol: Occasional
Personal:
Living: with family
Employment: Employed
Phy Exam
Physical Exam
Physical Exam:
See MDM
Scores
NIH Stroke Score
Level of Consciousness: 0 - Alert
LOC Questions: 2-Neither correct
LOC Commands: 2-Performs neither correctly
Best Horizontal Gaze: 0-Normal
Visual [place]: 0=Normal, no visual loss
Facial Palsy: 0=Normal, symmetrical
Motor - Right Arm: 0=No drift 10 seconds
Motor - Left Arm: 0=No drift 10 seconds
Motor - Right Le-No drift 5 seconds
Motor - Left Le-No drift 5 seconds
Limb Ataxia: 0-Absent
Sensation: 0-Normal
Best Language: 2-Severe aphasia
Dysarthria: 0-Normal
Extinction and Inattention: 0-No abnormality
NIH Total Score:: 6
Course
Orders/Labs/Results
Orders:
Orders
06/02/25 16:14
Electrocardiogram (*1) Stat
Reason for Study: Other
Other Reason for Exam: neuro symptoms
CT BRAIN PERF STROKE ALERT Urgent
Comment:
Reason For Exam: expressive aphasia and confusion x [address] HEAD STROKE ALERT W/o Cont Urgent
Comment:
Reason For Exam: expressive aphasia and confusion x [address] HEAD/NECK ANG STROKE ALERT Urgent
Comment:
Reason For Exam: expressive aphasia and confusion x 1 hour
NEUROLOGY CONSULT Urgent
Consulting Provider: Renato Martin
Was physician already notified: Yes
Cardiac Monitoring- Treatment ONCE
EKG- Treatment ONCE
06/02/25 16:45
Complete Blood Count/With Diff Urgent
Comprehensive Metabolic Panel Urgent
PTT Urgent
Prothrombin Time Urgent
Troponin I Urgent
Abnormal Lab Results
06/02/25 06/02/25
16:13 16:45
RBC 3.89 L 10^6/uL
(4.70-6.10)
Hct 38.2 L %
(39.0-52.0)
MCV 98.2 H fL
(80.0-94.0)
MCH 33.4 H pg
(27.0-31.0)
RDW 15.0 H %
(11.5-14.5)
MPV 10.8 H fL
(7.4-10.4)
Absolute Monos (auto) 1.0 H 10^3/uL
(0.1-0.6)
Monocytes % 14.1 H %
(1.7-9.3)
BUN 24 H mg/dl
(9-20)
Creatinine 1.5 H mg/dL
(0.7-1.3)
POC Glucose 118 H mg/dl
(70-99)
06/02/25 16:45
06/02/25 16:45
Vital Signs
Initial and Last Documented VS:
Initial Vital Signs
Temp Pulse Resp BP Pulse Ox
97.4 F 83 20 131/80 95
06/02/25 16:08 06/02/25 16:08 06/02/25 16:08 06/02/25 16:08 06/02/25 16:08
Last Documented Vital Signs
Temp Pulse Resp BP Pulse Ox
97.4 F 83 20 131/80 95
06/02/25 16:08 06/02/25 16:08 06/02/25 16:08 06/02/25 16:08 06/02/25 16:16
MDM/Problems Addressed
Differential Diagnosis Includes:
Note:
CHIEF COMPLAINT(S)
Speech difficulties and confusion.
HISTORY OF PRESENT ILLNESS
The patient is an 84-year-old male with a recent medical history of stroke last month, just before . The patient is currently on a blood thinner, Apixaban (Eliquis), taken this morning. The patient's first noticed symptoms,
including speech difficulties and confusion, about an hour before presenting to the emergency department. Prior to this, the patient had been functioning at about 90% of his baseline, driving and performing daily activities. At lunch, the
noticed some speech abnormalities, though not as severe as currently. After returning home, the patient began acting strangely and had difficulty putting on his shoes, prompting the visit to the emergency department. The patients previous symptoms
during the recent stroke included garbled speech, which now appears worse. Based on his recent stroke and the fact that he is on Eliquis, he is not a TNK candidate
PAST MEDICAL AND SURGICAL HISTORY
Recent stroke; presence of atrial fibrillation as an underlying condition.
CHRONIC MEDICAL CONDITIONS SIGNIFICANTLY AFFECTING CARE
Chronic conditions affecting care include atrial fibrillation for which the patient is on Apixaban (Eliquis).
PHYSICAL EXAM
General: Alert, no acute distress.
Skin: Warm, dry.
Head: Normocephalic, atraumatic
Neck: Appears supple, trachea midline.
Eyes, Ears, Nose, Mouth, and Throat: Moist mucous membranes
Cardiovascular: No signs of cyanosis
Respiratory: Respirations are non-labored.
Abdomen: Non-distended
Musculoskeletal: No deformities
Neurological: Moving all 4 extremities but not following commands appropriately. Significant expressive aphasia noted. Patient appears confused
Psychiatric: Flat affect
SUMMARY OF ENCOUNTER
The patient was seen in the emergency department due to new onset speech difficulties and confusion following a recent stroke about two weeks ago. The patient is on a blood thinner, Apixaban (Eliquis), which precludes the use of thrombolytic
therapy. A detailed neurological examination was performed.
DIFFERENTIAL DIAGNOSIS
The Differential Diagnosis includes, in no particular order and is not limited to:
- Stroke
- Transient Ischemic Attack
- Medication side effects (e.g., anticoagulation-related effects)
- Electrolyte imbalance
- Sepsis or infection
- Neurological disorders (e.g., dementia)
- Metabolic encephalopathy
- Hypoglycemia
- Intracranial hemorrhage
- Atrial fibrillation-related embolism
PLAN
Imaging and further diagnostics were discussed, and a plan for evaluation of stroke symptoms was outlined. Coordination with the patients development spec and primary care physician for follow-up and further management of atrial fibrillation and
possible adjustment of anticoagulation therapy was considered.
MEDICAL DECISION MAKING
- Complexity of Data Reviewed: Chronic conditions affecting care include atrial fibrillation.
- Data:
- Category 1: Consideration of stroke protocol imaging was discussed.
- Category 2: Clinical information was obtained through evaluation and discussion.
- Risk: The current use of Apixaban (Eliquis) disqualifies the administration of thrombolytic therapy. Admission or observation was considered due to the serious nature of the presenting symptoms in relation to recent stroke history and
anticoagulation therapy. The patients symptoms were severe enough to consider possible escalation, pending further tests and evaluations.
DIAGNOSIS
- Suspected Stroke or Transient Ischemic Attack ICD-10: I63.9
- Atrial Fibrillation ICD-10: I48.91
This structured note includes only the sections explicitly addressed in the transcript, omitting undiscussed aspects for focused, relevant insight into the patients condition and management.
EKG
My independent EKG interpretation is:
- Rhythm: Sinus rhythm
- Heart Rate: 68 beats per minute
- Arrhythmia: Pyrrits erythus arrhythmia noted
- Atrioventricular Block: Periodic type 4 block noted
- [place]: Left axis deviation
- ST Segment: No ST elevation observed
SUMMARY OF ENCOUNTER
The patient, an 84-year-old male, presented with sudden onset of altered mental status and expressive aphasia. A stroke alert was initiated by the nursing staff in triage. The patient was not a candidate for thrombolytic therapy (e.g., TNK) due to a
recent stroke history and ongoing anticoagulation therapy with Eliquis (apixaban). Diagnostic evaluation included a negative CT head and blood work without significant abnormalities. Due to persistent symptoms, the decision was made to admit the
patient for further observation and management.
DISPOSITION
Admit
MEDICAL DECISION MAKING
-Complexity of Data Reviewed: Chronic conditions affecting care include atrial fibrillation, recent stroke. Differential diagnosis includes stroke, transient ischemic attack, medication side effects, electrolyte imbalance, sepsis or infection,
neurological disorders, metabolic encephalopathy, hypoglycemia, intracranial hemorrhage, atrial fibrillation-related embolism.
-Data:
Category 1
- A negative CT head was interpreted, and blood work was reviewed, showing no significant abnormalities.
- Category 2
- Input from nursing staff was obtained regarding the sudden onset of symptoms.
-Risk: The decision to admit the patient was based on the high risk of complications due to persistent symptoms and the recent history of stroke while on anticoagulation therapy.
DIAGNOSIS
- Suspected Stroke or Transient Ischemic Attack ICD-10: I63.9
- Atrial Fibrillation ICD-10: I48.91
*Pulse Oximetry
SaO2: 95
Patient hypoxic: no
*Critical Care Note
Total Time (30-74mins, 75-104mins- exclusive of procedures): Not Applicable
ED Attending Note
-
Portions of this chart may have been created with voice recognition software.� Occasional wrong word or��sound alike� substitutions may have occurred due to the inherent limitations of voice recognition software.
Discharge Plan
Departure
Patient Disposition: Admit
Date of Disposition: 06/02/25
Time of Disposition: 17:13
Admit to: Telemetry
Presentation/result/management discussed w/ accepting MD/DO: Hospitalist
Discharge Problem:
CVA (cerebral vascular accident)
Prescriptions:
No Action
tamsulosin 0.4 MG capsule
0.4 mg PO Q48H
vitamin B complex 1 TAB tablet
1 tab PO DAILY
PreserVision AREDS 1 CAP capsule
1 cap PO BID
omega 0-ntg-pyd-fish oil [Fish Oil] 1 EACH capsule
1 cap PO DAILY
calcium carbonate [Calcium 600] 600 mg calcium (1,500 mg) Tablet
1,200 mg PO DAILY
sildenafil 100 mg Tablet
100 mg PO DAILYPRN PRN (Reason: sexual activity)
levothyroxine 25 mcg Tablet
25 mcg PO DAILY
nifedipine 30 MG tablet extended release
30 mg PO DAILY
mometasone 0.1 % Cream
1 applic TOPICAL DAILYPRN PRN (Reason: itchy bumps)
cholecalciferol (vitamin D3) 25 mcg (1,000 unit) Tablet
25 mcg PO DAILY
atorvastatin 20 MG tablet
40 mg PO QPM Qty: 30 0RF
Eliquis 5 mg Tablet
5 mg PO BID
Referrals:
Krishan Uriostegui DO [Family Provider, Family Practice]
Interventions
Interventions:
*General Assessment Last Done: 06/02/25 16:38
*Neglect/Abuse Screening Last Done: 06/02/25 16:33
*ED COVID-19 Vaccine History Last Done: 06/02/25 16:33
*ED Influenza Vaccine History Last Done: 06/02/25 16:33
[facility] Risk Assessment Tool Last Done: 06/02/25 16:58
*Risk Screen - Suicide (C-SSRS) Last Done: 06/02/25 16:33
ED- Neurological Assessment Last Done: 06/02/25 16:10
Discharge Date and Time
Print Language: ARABIC
[2025-06-02 16:57] LABS: Hematocrit 38.2 % (39.0-52.0); Hemoglobin 13.0 g/dL (13.0-18.0); Mean Corp Hgb Conc. 34.0 g/dL (33.0-37.0); Mean Corpuscular Volume 98.2 fL (80.0-94.0); Nucleated Red Blood Cells % 0 % (-); Platelet Count 153 10^3/uL (130-400); Red Cell Dist. Width 15.0 % (11.5-14.5)
[2025-06-02 17:04] LABS: INR 1.20; PT 15.3 Sec (11.4-14.6)
[2025-06-02 17:05] LABS: APTT 34.7 Sec (23.4-35.0)
[2025-06-02 17:07] LABS: ALT (SGPT) 22 U/L (0-50); AST (SGOT) 25 U/L (17-59); Albumin 4.2 g/dl (3.5-5.0); Alkaline Phosphatase 77 U/L (38-126); Blood Urea Nitrogen 24 mg/dl (9-20); Calcium 9.3 mg/dl (8.4-10.2); Carbon Dioxide 24 mmol/L (22-30); Chloride 102 mmol/L (98-107); Estimated Creatinine Clearance 39 ml/min; Glucose 80 mg/dl (70-99); Potassium 4.2 mmol/L (3.5-5.1); Sodium 136 mmol/L (135-145); Total Protein 7.3 g/dl (6.3-8.2); eGFR 45.62
[2025-06-02 17:18] LABS: Troponin I 0.039 ng/ml
--- NOTE | 2025-06-02 18:13 | HPS.HSE ---
Family Physician
-
Family Physician: Krishan Uriostegui,
Chief Complaint
-
Aphasia
History of Present Illness
84-year-old man with a stroke last month. He is on a blood thinner, Apixaban (Eliquis), taken this morning. Symptoms, started (including speech difficulties and confusion), about an hour before presenting to the emergency department. Prior to this,
the patient had been functioning at about 90% of his baseline, (driving and performing daily activities). The patients previous symptoms during the recent stroke included garbled speech (this is now worse). Based on his recent stroke and the fact
that he is on Eliquis, he is not a TNK candidate. He was not able to answer my questions or follow most of my commands. The fact he could follow some commands was an improvement according to his . The d/c summary on 05/16/25 stated:
'Mr. Dontae Chu is a 84 yo man with hx tobacco use, CVA, HTN, CAD on Plavix, s/p TAVR presents with abnormal speech and increased right eye ptosis. NIH score 4. Head CT with possible subacute infarction superior aspect of abhi. Patient was
admitted to medicine with Neurology consulting. MRI with finding 5mm right cerebellar infarct. Aspirin added to Plavix, to continue DAPT x 3 weeks then Plavix alone. Dose of Lipitor increased. His Microcomputer Technician will arrange outpatient cardiac
monitoring to rule out afib. Patient's deficits resolved prior to discharge. He worked well with PT/OT.'
Medical History
Past Medical History
Past Medical History: Reports Other
Additional Past Medical History:
History of compression fracture of spine
Degenerative disc disease, lumbar
Coronary artery disease
Dyslipidemia
ED (erectile dysfunction)
Bilateral renal cysts
Severe aortic stenosis
Bifascicular block
Implantable loop recorder present
Essential hypertension
kidney stones
Macular degeneration
Paroxysmal atrial fibrillation
BPH (benign prostatic hyperplasia)
Stage 3a chronic kidney disease (CKD)
Atrial ectopy
Ischemic stroke
Mild anemia
Past Surgical History: Reports Other (See above)
Additional Past Surgical History:
See above
Social History
Tobacco: Non-smoker
Alcohol: None
Personal:
Living: With Family
Family History
Family History: Not pertinent
Allergies / Home Medications
Allergies reflects when Allergies were last updated in [facility].
Home Medications with original date entered in [facility]
Allergy/Medication List:
Allergies
Allergy/AdvReac Type Severity Reaction Status Date / Time
metoprolol Allergy Rash Verified 06/02/25 16:59
Sulfa (Sulfonamide Allergy 'throat Verified 06/02/25 16:59
Antibiotics) inflamed'
Home Medications
tamsulosin 0.4 mg capsule 0.4 mg PO Q48H Urinary Issue 01/04/18
vitamin B complex 1 tab PO DAILY Supplement 01/04/18
vitamins A,C,A-uaqe-lnstqs 4,296 mcg-226 mg-90 mg capsule (PreserVision AREDS) 1 cap PO BID Supplement 01/04/18
omega 1-tid-yay-fish oil 300 mg-1,000 mg capsule (Fish Oil) 1 cap PO DAILY Supplement 02/27/21
calcium carbonate (Calcium 600) 1,200 mg PO DAILY Supplement 07/21/22
cholecalciferol (vitamin D3) 25 mcg (1,000 unit) tablet 25 mcg PO DAILY Supplement 05/08/25
levothyroxine 25 mcg tablet 25 mcg PO DAILY Thyroid 05/08/25
mometasone 0.1 % topical cream 1 applic topical DAILYPRN PRN itchy bumps 05/08/25
nifedipine 30 mg tablet,extended release 30 mg PO DAILY Blood Pressure 05/08/25
sildenafil 100 mg tablet 100 mg PO DAILYPRN PRN sexual activity 05/08/25
atorvastatin 20 mg tablet 40 mg (2 x 20 mg) PO QPM High cholesterol #30 tabs 05/09/25
apixaban 5 mg tablet (Eliquis) 5 mg PO BID 06/02/25
Review of Systems
-
Unable to obtain full review of systems at this time due to: Patient Non-verbal
Physical Exam
Vital Signs
Vital Signs
Temp Pulse Resp BP Pulse Ox
97.4 F 83 20 131/80 95
06/02/25 16:08 06/02/25 16:08 06/02/25 16:08 06/02/25 16:08 06/02/25 16:16
Physical Exam
General: Well Developed, Well Nourished and No Apparent Distress
HEENT: NormoCephalic, Nose Appears Normal and Ears Appear Normal
Respiratory: Clear
Cardiac: S1/S2
GI: Soft, Non Tender and Non Distended
Musculoskeletal: No Clubbing and No Cyanosis
Skin: Warm and Dry; No Rash
Neuro: Awake, Alert and Other (could not perform neuro exam because of inability to follow commands)
Psych: Calm
Laboratory Results
-
06/02/25 16:45
06/02/25 16:45
Laboratory Results
PT 15.3 Sec (11.4-14.6) H 06/02/25 16:45
INR 1.20 06/02/25 16:45
APTT 34.7 Sec (23.4-35.0) 06/02/25 16:45
Total Bilirubin 0.3 mg/dl (0.2-1.3) 06/02/25 16:45
AST 25 U/L (17-59) 06/02/25 16:45
ALT 22 U/L (0-50) 06/02/25 16:45
Alkaline Phosphatase 77 U/L (38-126) 06/02/25 16:45
Troponin I 0.039 ng/ml H* 06/02/25 16:45
Data Reviewed
-
Lab Data: Labs Reviewed by me
Impression/Plan
-
IMPRESSION:
84 man with h/o recent stroke presenting with new aphasia and elevated troponin.
Head CT:
Moderate age-related parenchymal atrophy. Hypoattenuation in the left side of the abhi, likely artifactual and present on the prior CT.
Chronic lacunar infarcts in the bilateral cerebellar hemispheres.
The small acute infarct in the right cerebellum on the prior brain MRI is not appreciated by CT.
No intra- or extra-axial mass, hemorrhage, or fluid collection.
Moderate subcortical, deep, and periventricular white matter low-attenuation, compatible with changes of chronic small vessel ischemic disease.
The imaged paranasal sinuses and mastoid air cells are clear. Bilateral ocular lens implants.
IMPRESSION:
No acute intracranial abnormality
No CTA evidence for high-grade stenosis or occlusion of the [place] or the arterial vasculature in the neck.
Stable less than 50% stenosis of the bilateral carotid bulbs.
PLAN:
1. New aphasia in setting of recent CVA - not a TKA candidate
CVA protocol
Neuro consult
Tele admit
2. Elevated troponin, no obvious c/o chest pain, unchanged ECG, h/o CAD
Trend troponin
Telemetry
Periodic ECGs (knows h/o Bifascicular block)
Aspirin given in ED
Takes atorvastatin
3. History of compression fracture of spine
4. H/O Severe aortic stenosis - check echo to make sure this is not worsening and contributing to symptoms
5. Stage 3a chronic kidney disease (CKD), BUN/creat 24/1.5
Check renal function daily
6. Other known issues (but not acute emergencies:)
Implantable loop recorder present
Essential hypertension
kidney stones
Macular degeneration
Paroxysmal atrial fibrillation
BPH (benign prostatic hyperplasia)
Atrial ectopy
Mild anemia
Full code
Eliquis for DVTp
[2025-06-02] MEDS: LOW STRENGTH ASPIRIN 324 MG PO (19:03)
--- NOTE | 2025-06-02 21:45 | PTCARENOTE ---
Pt arrived to room 435-01. Pt transferred from stretcher to bed. AAOx3, VSS. Refer to NIH stroke scale. Bed alarm in place, at bedside.
[2025-06-02] MEDS: FLOMAX 0.4 MG PO (22:41)
[2025-06-02] MEDS: ELIQUIS 2.5 MG PO (22:41)
[2025-06-02 22:52] LABS: Troponin I 0.036 ng/ml
[2025-06-03] VITALS (8 sets, daily range): BP systolic 94–139; BP diastolic 55–81; PULSE 111; O2SAT 93
[2025-06-03 04:47] LABS: Troponin I 0.038 ng/ml
[2025-06-03] MEDS: SYNTHROID 25 MCG PO (06:01)
--- NOTE | 2025-06-03 07:06 | CON.NEURO ---
Neuro Assessment/Plan
Assessment
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 Symptoms described as about 1 hour of acute onset repetitive speech, word finding
difficulty and confusion. Neurological examination today most consistent with expressive/Broca's aphasia, with otherwise intact exam.
Overall, symptoms strongly concerning for acute infarct, although would be surprising given reported adherence on recently started apixiban. No high grade stenosis on CTA. Given concern for breakthrough stroke while on AC, would obtain repeat TTE
with contrast to evaluate for LV thrombus or acute heart failure that might explain stroke. In the interim, continue AC.
Differential also includes seizure, acute confusional state ( denies history of baseline deficits, although MRI suggests more chronic bitemporal predominant diffuse volume loss potentially suggestive of underlying neurodegenerative condition),
infection/toxic metabolic cause (workup negative to date apart from mild MJ). Symptoms are unlikely to be secondary to prior right cerebellar infarct given localization.
Plan
- continue apixiban for now (if resolution of MJ with Cr <1.5, please return to 5 mg BID dosing given weight > 60 kg)
- obtain MRI brain without contrast, as planned
- if evidence of acute infarct, will discuss adjustment in regimen, but likely adding ASA 81 mg daily to AC (hold for now)
- if no evidence of acute infarct on MRI, consider routine EEG vs LTM
- obtain TTE with contrast to evaluate for potential LV thrombus
- continue telemetry monitoring
- BP goal normotension given no LVO
Consultation
Order
Date of Consultation: 06/03/25
Requesting Provider: Armand Munguia
Reason for Consult: Stroke
Subjective/Objective
Subjective Data
Date of Service: June 03, 2025
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
He was recently discharged 2.5 weeks prior 05/16/25 after presenting with dysarthria and confusion, found to have right cerebellar infarct. He was initially discharged on aspirin + clopidogrel x3 weeks. However, he was found to have atrial
fibrillation on outpatient implantable loop recorder and was transitioned to apixiban 5 mg BID, which he last took the AM of arrival. He denies any missed doses of apixiban.
After discharge, per his , he reportedly had been at his neurological baseline with significantly improved speech and mentation. His last known normal was 06/02 1400. He then developed global aphasia (both word finding difficulty and
repetitive, non-sensical speech), confusion for about 1 hour prior to arrival. Denies any convulsive symptoms or infectious symptoms (fever, chills, cough, etc), although notes mild dysuria.
NCHCT and CTA demonstarted no acute pathology.
He was not a candidate for TNK due to current AC usage.
Objective Data
Vital Signs
Temp Pulse Resp BP Pulse Ox
37.1 C 96 16 111/66 96
06/03/25 03:30 06/03/25 03:30 06/03/25 03:30 06/03/25 03:30 06/03/25 03:30
PT 15.3 Sec (11.4-14.6) H 06/02/25 16:45
INR 1.20 06/02/25 16:45
APTT 34.7 Sec (23.4-35.0) 06/02/25 16:45
Sodium 136 mmol/L (135-145) 06/02/25 16:45
Potassium 4.2 mmol/L (3.5-5.1) 06/02/25 16:45
BUN 24 mg/dl (9-20) H 06/02/25 16:45
Glucose 80 mg/dl (70-99) 06/02/25 16:45
Calcium 9.3 mg/dl (8.4-10.2) 06/02/25 16:45
Labs reviewed: normocytic anemia (Hgb 12.4), no leukocytosis, INR wnl, acute kidney injuiry Cr 1.5 from baseline 1.1, otherwise wnl, trop 0.039>0.036>0.038
LDL Cholesterol, Calc 52 mg/dl 05/09/25 06:48
Vitamin B12 > 1000 pg/ml (239-931) H 05/09/25 06:48
Patient Allergies
metoprolol Allergy (Verified 06/02/25 16:59)
Rash
Sulfa (Sulfonamide Antibiotics) Allergy (Verified 06/02/25 16:59)
'throat inflamed'
TTE 05/09/25
SUMMARY
1. Normal LV size and function without regional wall motion normalities.
2. LVEF is 55-60% by visual estimation.
3. Mildly dilated RV with normal systolic function.
4. S/p TAVR 26 mm with mean gradient 10 mmHg no significant regurgitation. Normally functioning.
5. Mild to moderate tricuspid regurgitation. Normal estimated PASP at 34 mmHg.
6. Compared to prior from August 21, 2023 TR is now mild to moderate, previously mild.
Interatrial Septum:
The interatrial septum appears normal and intact, with no evidence of interatrial shunting.
MRI brain 05/16/25 - acute right medial cerebellar infarct, diffuse atrophy, small vessel ischemic changes with confluent white matter FLAIR hyperintensities
CVA Assessment
Onset of Stroke Symptoms
Date of onset of symptoms: 06/02/25
Time of onset of symptoms: 14:00
Date last time pt seen normal: 06/02/25
Time last time pt seen normal: 13:59
NIH Stroke Score
Level of Consciousness: 0 - Alert
LOC Questions: 0-Answers both correctly
LOC Commands: 1-Performs one correctly
Best Horizontal Gaze: 0-Normal
Visual Connelly: 0=Normal, no visual loss
Facial Palsy: 0=Normal, symmetrical
Motor - Right Arm: 0=No drift 10 seconds
Motor - Left Arm: 0=No drift 10 seconds
Motor - Right Le-No drift 5 seconds
Motor - Left Le-No drift 5 seconds
Limb Ataxia: 0-Absent
Sensation: 0-Normal
Best Language: 1-Mild aphasia
Dysarthria: 0-Normal
Extinction and Inattention: 0-No abnormality
NIH Total Score:: 2
Tenecteplase Contraindications
Inclusion and Exclusion criteria reviewed: Yes
Reasons for NON-Tx with Thrombolytics ABSOLUTE Exclusions: Patient taking oral anticoagulant and last dose within 48 hours
IAT Contraindications: Imaging doesn't show large vessel occlusion as cause of stroke
Past History
Past Medical / Surgical History
Past Medical History: Other (HTN, HLD, CAD, )
Past Surgical History: Other (TAVR)
Social History
Tobacco: Non-smoker
Alcohol: None
Drug: None
Living: with family
Review of Systems
-
All other systems: Reviewed and negative
Physical Exam
-
Eyes: Unremarkable
HEENT: Normocephalic and Atraumatic
Extended Neurological Exam
Attention Span & Concentration: Awake, Alert (Oriented to person, place, and time although with severely delay response latency ) and Moderate Difficulty with 2 Step Request
Tremor: Hand Tremor Absent
Involuntary Movement: None
Speech: Expressive Aphasia (Impaired verbal fluency, repetition, however intact naming. Mostly intact comprehension although with prolonged latency. ) and Mildly Reduced Output
Cranial Nerve II: Left Eye: Pupillary Reactivity Unremarkable and Visual Connelly Intact
Cranial Nerve II: Right Eye: Pupillary Reactivity Unremarkable and Visual Connelly Intact
Cranial Nerves III, IV, : Extraocular Movement: Extraocular Movement Full in all Directions
Cranial Nerve V: Facial Sensation: Intact to Light Touch
Cranial Nerve VII: Facial Symmetry: Normal Facial Symmetry
Cranial Nerve VIII: Hearing: Unremarkable Hearing to Normal Conversational Volume
Cranial Nerves IX, X: Palate Movement: Palate Elevation Symmetric
Cranial Nerve XI: Shoulder Shrug: Unremarkable
Cranial Nerve XII: Tongue Protusion: Midline
Muscle Strength, Overall: Full Throughout
Muscle Bulk & Tone: Bulk Unremarkable and Tone Unremarkable
Pronator Drift: No Drift in Upper Extremities and No Drift in Lower Extremities
Deep Tendon Reflexes: Other (2+ throughout)
Touch Sensation: Double Simultaneous Stimulation Unremarkable
Coordination: Ccllto-vpmk-mogukr Testing Unremarkable
Data Reviewed
-
CT-A: Image Reviewed (06/02 CTA H&N no large vessel occlusion, mild left vertebral artery stenosis with distal reconstitution, <50% stenosis of bilateral carotids)
CT Head: Image Reviewed (06/02/25 No acute aphtology )
MRI Head: Report Reviewed and Image Reviewed (MRI brain 05/16/25 - acute right medial cerebellar infarct, diffuse atrophy, small vessel ischemic changes with confluent white matter FLAIR hyperintensities )
Labs: Report Reviewed
Lipid Profile: Report Reviewed
Medications
-
Active Medications
Generic Name Dose Route Start Last Admin
Trade Name Freq PRN Reason Stop Dose Admin
Acetaminophen 650 mg 06/02/25 21:25
Acetaminophen 650 Mg Rectal Suppository RECTAL 06/30/25 21:24
Q4HPRN PRN
PLEITEZ, mild pain, or temp >100.4F
Acetaminophen 650 mg 06/02/25 21:25
Acetaminophen 325 Mg Tablet PO 06/30/25 21:24
Q4HPRN PRN
PLEITEZ, mild pain, or temp >100.4F
Apixaban 2.5 mg 06/02/25 22:00 06/02/25 22:41
Apixaban (Eliquis) 2.5 Mg Tablet PO 06/30/25 21:59 2.5 mg
BID KARLIE Administration
Aspirin 81 mg 06/03/25 08:00
Aspirin 81 Mg Chewable Tablet PO 07/01/25 07:59
DAILY KALRIE
Atorvastatin Calcium 40 mg 06/03/25 18:00
Atorvastatin (Lipitor) 20 Mg Tablet PO 07/01/25 17:59
QPM KARLIE
Calcium/Vitamin D 1,000 mg 06/03/25 08:00
Calcium Carbonate 500 Mg/Vitamin D 5 Mcg (200 Units) Tablet PO 07/01/25 07:59
DAILY KARLIE
Cholecalciferol 25 mcg 06/03/25 08:00
Cholecalciferol (Vitamin D3) 25 Mcg Tablet (1,000 Units) PO 07/01/25 07:59
DAILY KARLIE
Levothyroxine Sodium 25 mcg 06/03/25 06:00 06/03/25 06:01
Levothyroxine 25 Mcg Tablet PO 07/01/25 05:59 25 mcg
DAILY@0600 KARLIE Administration
Nifedipine 30 mg 06/03/25 08:00
Nifedipine 30 Mg Extended Release Tablet PO 07/01/25 07:59
DAILY KARLIE
Tamsulosin HCl 0.4 mg 06/02/25 22:00 06/02/25 22:41
Tamsulosin 0.4 Mg Capsule PO 06/30/25 21:59 0.4 mg
Q48H KARLIE Administration
Triamcinolone Acetonide 1 applic 06/02/25 21:38
Tramcinolone Acetonide 0.1% (Cream) 15 Gram Tube TOPICAL 06/30/25 21:37
DAILYPRN PRN
itchy bumps
Vitamin B Complex/Vitamin C 1 caplet 06/03/25 08:00
Vitamin B Complex With Vitamin C Caplet PO 07/01/25 07:59
DAILY KARLIE
Vitamin C/Vitamin E 1 cap 06/03/25 08:00
Vit C/Vit E/Lutein/Min/Lane-3 (Ocuvite) Capsule PO 07/01/25 07:59
BID KARLIE
Home Medications
�Medication �Instructions �Recorded
tamsulosin 0.4 mg capsule 0.4 mg PO Q48H Urinary Issue 01/04/18
vitamin B complex 1 tab PO DAILY Supplement 01/04/18
vitamins A,C,C-kgah-bxhasv 4,296 1 cap PO BID Supplement 01/04/18
mcg-226 mg-90 mg capsule
(PreserVision AREDS)
omega 4-qho-kbl-fish oil 300 1 cap PO DAILY Supplement 02/27/21
mg-1,000 mg capsule (Fish Oil)
calcium carbonate (Calcium 600) 1,200 mg PO DAILY Supplement 07/21/22
cholecalciferol (vitamin D3) 25 25 mcg PO DAILY Supplement 05/08/25
mcg (1,000 unit) tablet
levothyroxine 25 mcg tablet 25 mcg PO DAILY Thyroid 05/08/25
mometasone 0.1 % topical cream 1 applic topical DAILYPRN PRN 05/08/25
itchy bumps
nifedipine 30 mg tablet,extended 30 mg PO DAILY Blood Pressure 05/08/25
release
sildenafil 100 mg tablet 100 mg PO DAILYPRN PRN sexual 05/08/25
activity
atorvastatin 20 mg tablet 40 mg (2 x 20 mg) PO QPM High 05/09/25
cholesterol #30 tabs
apixaban 5 mg tablet (Eliquis) 5 mg PO BID 06/02/25
[2025-06-03] MEDS: ELIQUIS 2.5 MG PO (07:31)
[2025-06-03] MEDS: VITAMIN D3 (cholecalciferol) 25 MCG PO (07:31)
[2025-06-03] MEDS: PROCARDIA XL (EXTENDED RELEASE) 30 MG PO (07:31)
[2025-06-03] MEDS: OCUVITE SOFTGEL 1 CAP PO ×2 (07:32→20:28)
[2025-06-03] MEDS: OSCAL 500 + D 1000 MG PO (07:32)
[2025-06-03] MEDS: LOW STRENGTH ASPIRIN 81 MG PO (07:32)
[2025-06-03] MEDS: B COMPLEX w/VITAMIN C 1 CAPLET PO (07:32)
[2025-06-03 09:51] LABS: Hematocrit 39.5 % (39.0-52.0); Hemoglobin 13.5 g/dL (13.0-18.0); Mean Corp Hgb Conc. 34.2 g/dL (33.0-37.0); Mean Corpuscular Volume 95.4 fL (80.0-94.0); Platelet Count 158 10^3/uL (130-400); Red Cell Dist. Width 14.8 % (11.5-14.5)
[2025-06-03 10:06] LABS: Troponin I 0.042 ng/ml
[2025-06-03 11:44] LABS: Blood Urea Nitrogen 18 mg/dl (9-20); Calcium 9.7 mg/dl (8.4-10.2); Carbon Dioxide 21 mmol/L (22-30); Chloride 104 mmol/L (98-107); Estimated Creatinine Clearance 49 ml/min; Glucose 118 mg/dl (70-99); HDL Cholesterol 63 mg/dl; LDL Cholesterol, Calculated 54 mg/dl; Potassium 4.3 mmol/L (3.5-5.1); Sodium 134 mmol/L (135-145); Very Low Density Lipoprotein 15 mg/dl (0-30); eGFR 59.63
--- NOTE | 2025-06-03 12:44 | W.PN.HOSP.TC ---
Addendum entered and electronically signed by Jeison Green MD 06/03/25 17:12:
Updated over the phone today.
Original Note:
Today's Communication/Plan
-
MRI of the brain. Echocardiogram. Neurology eval
Assessment / Plan
Assessment / Plan
Physical exam:
General: Acutely ill
HEENT: Normocephalic, Atraumatic and Moist Mucous Membranes
Respiratory: Clear to Auscultation; Negative Wheezes, Rales or Rhonchi
Cardiac: Regular Rhythm and S1/S2
GI: Soft, Nontender and Nondistended
Musculoskeletal: No Clubbing, No Cyanosis and No Edema
Neuro: Awake, Alert and Oriented, still having expressive aphasia, left lower extremity weakness, no cranial nerve deficits.
Psych: Calm
A/P:
Concerns for recurrence of stroke:
History of recent cerebellar infarct
Neurology consult appreciated
Neurology recommended increasing Eliquis back to 5 mg twice a day
Plan for MRI of the brain
Plan for a transthoracic echocardiogram
PT OT eval
MJ:
Improving
IV fluid
Avoid nephrotoxic
Monitor renal function in a.m.
Elevated troponin:
Suspect elevated troponin due to non-ischemic myocardial injury in the setting of neurological acute events and MJ.
Follow-up trend
secured entrance monitor
Hyponatremia:
Monitor trend
Paroxysmal atrial fibrillation:
Restarted back on Eliquis
Hypertension:
Continue home antihypertensive but holding parameters placed with higher threshold
Mild asymptomatic hypotension:
Given IV fluids to avoid brain hypoperfusion
Continue to monitor
Hyperlipidemia:
Continue home statin
LDL at goal 54
History of CAD:
Continue anticoagulation, antiplatelet, and statin.
History of PCI in the past.
Chest pain-free
Aortic stenosis status post TAVR:
Plan for echo
BPH:
Continue Flomax
Hypothyroidism:
Continue thyroid replacement
Chronic back pain:
Continue pain meds as needed
DVT prophylaxis:
Eliquis
CODE STATUS:
Full code
Total time spent on today's encounter was 52 minutes which included time spent in counseling the patient/family regarding diagnosis and treatment plan as listed above, goals of care, and symptom management. Case was discussed with nursing staff,
specialists, and care coordinators/case management. All labs and imaging personally reviewed by me. Remainder the time spent in detailed review of previous records, lab data, imaging, and other medical provider documentation.
Anticipated Discharge: > 48 hours
Subjective/Interval History
-
Date of Service: June 03, 2025
Patient continues to have intermittent aphasia, complains of left lower extremity weakness as well. Confusion on and off. Afebrile
Objective Data
-
Labs:
Laboratory Results
06/03/25
09:12
WBC 8.9
Hgb 13.5
Hct 39.5
Plt Count 158
Sodium 134 L
Potassium 4.3
Chloride 104
Carbon Dioxide 21 L
BUN 18
Creatinine 1.2
Glucose 118 H
Calcium 9.7
Vital Signs:
Vital Signs
Temp Pulse Resp BP Pulse Ox
97.6 F 88 16 94/60 96
06/03/25 11:00 06/03/25 11:00 06/03/25 11:00 06/03/25 11:00 06/03/25 11:00
I&O
06/02/25 06/03/25 06/04/25
06:59 06:59 06:59
Intake Total 480 / 480
Output Total 525 / 525 800 / 800
Balance -525 / -525 -320 / -320
[2025-06-03] MEDS: NSS 1000 IV ×2 (13:27→17:03)
--- NOTE | 2025-06-03 14:57 | PTOTSP ---
Speech-Language Evaluation
Pt at an elevated risk of aspiration given history of CVA/TIA. At bedside, pt managed regular solids and thin liquids with no overt s/sx of aspiration, clear vocal quality, and no breath changes. Pt is on room air and WBC is WNL.
Pt participated on [place] Aphasia Screening Test (MAST). Pt scored 87/100 (scores below 95 suggestive of aphasia) likely due to recent stroke (05/09/2025). Points deducted on writing task and verbal fluency task. MRI results (reviewed following
the bedside evaluation) revealed no evidence of acute infarct. Pt provided with [facility] outpatient services pamphlet describing speech services that are available.�
Recommend:�
1. Regular solids and thin liquids
2. Medication as best tolerated
3. Standard aspiration precautions
4. Pt can consider speech treatment in the next level of care given aphasia secondary to recent stroke (05/09/25)
5. Speech s/o
[2025-06-03] MEDS: LIPITOR 40 MG PO (17:03)
[2025-06-03] MEDS: ELIQUIS 5 MG PO (20:28)
[2025-06-04 03:46] VITALS: BP 134/78
[2025-06-04] MEDS: SYNTHROID 25 MCG PO (05:14)
--- NOTE | 2025-06-04 07:38 | W.PN.NEURO.1 ---
Today's Communication / Plan
-
Continuos EEG/telemetry to capture event of aphasia, continue apixiban (monitor CrCl)
Neuro Assessment/Plan
Assessment
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 Symptoms described as about 1 hour of acute onset repetitive speech, word finding
difficulty and confusion. Neurological examination today improved compared to prior, with mild inattention however resolved expressive/Broca's aphasia vs 06/03. No evidence of interval infarct on repeat MRI, however diffuse bitemporal-parietal
volume loss potentially suggestive of underlying neurodegenerative process.
On further history today, his reports that his slowness to respond has been occurring for several months, however episodes of aphasia have been more acute over the past few weeks. Overall, in the absence of new stroke, differential for episodic
aphasia includes focal seizures vs confusional episodes i/s/o possible neurodegenerative disorder vs cardiogenic. Recommend EEG to further evaluate - will attempt to capture event and determine if EEG and/or telemetry correlate.
Differential also includes infection/toxic metabolic cause (workup negative to date apart from mild MJ). Symptoms are unlikely to be secondary to prior right cerebellar infarct given localization. No high grade stenosis on CTA.
Plan
- continue apixiban 5 mg BID (monitor daily BMP, if Cr > 1.5, likely dose reduce to 2.5 mg BID given age; if continued fluctuation consider rivaroxaban)
- start LTM monitoring - asked /RN to dmitry any events of expressive aphasia for review
- obtain TTE
- continue telemetry monitoring
- BP goal normotension given no LVO
Subjective/Objective
Subjective Data
Date of Service: June 04, 2025
- MRI obtained - no evidence of acute stroke
- Continues to have intermittent episodes of expressive aphasia, however improved this AM
Objective Data
Vital Signs
Temp Pulse Resp BP Pulse Ox
36.7 C 91 18 134/78 98
06/04/25 03:46 06/04/25 03:46 06/04/25 03:46 06/04/25 03:46 06/04/25 03:46
PT 15.3 Sec (11.4-14.6) H 06/02/25 16:45
INR 1.20 06/02/25 16:45
APTT 34.7 Sec (23.4-35.0) 06/02/25 16:45
Sodium 134 mmol/L (135-145) L 06/03/25 09:12
Potassium 4.3 mmol/L (3.5-5.1) 06/03/25 09:12
BUN 18 mg/dl (9-20) 06/03/25 09:12
Glucose 118 mg/dl (70-99) H 06/03/25 09:12
Calcium 9.7 mg/dl (8.4-10.2) 06/03/25 09:12
LDL Cholesterol, Calc 54 mg/dl 06/03/25 09:12
Vitamin B12 >1000, TSH wnl (4.67) (05/09)
Normal SPEP (03/28, 08/08)
Labs reviewed, improved MJ (Cr 1.5 >1.2) mild hyponatremia (134), LFTs wnl, trop rise (0.039>0.042), improved anemia
Patient Allergies
metoprolol Allergy (Verified 06/02/25 16:59)
Rash
Sulfa (Sulfonamide Antibiotics) Allergy (Verified 06/02/25 16:59)
'throat inflamed'
MRI brain without contrast (06/03/25)
No evidence of acute infarct
Moderate to severe global atrophy, most pronounced temporal-parietal
Confluent small vessel ischemic changes
TTE 05/09/25
SUMMARY
1. Normal LV size and function without regional wall motion normalities.
2. LVEF is 55-60% by visual estimation.
3. Mildly dilated RV with normal systolic function.
4. S/p TAVR 26 mm with mean gradient 10 mmHg no significant regurgitation. Normally functioning.
5. Mild to moderate tricuspid regurgitation. Normal estimated PASP at 34 mmHg.
6. Compared to prior from August 21, 2023 TR is now mild to moderate, previously mild.
Interatrial Septum:
The interatrial septum appears normal and intact, with no evidence of interatrial shunting.
EKG (06/02/25)
SINUS RHYTHM WITH 1ST DEGREE A-V BLOCK WITH PREMATURE ATRIAL COMPLEXES
BLOCKED PREMATURE ATRIAL COMPLEXES
RIGHT BUNDLE BRANCH BLOCK
LEFT ANTERIOR FASCICULAR BLOCK
BIFASCICULAR BLOCK
MRI brain (05/16/25) - acute right medial cerebellar infarct, diffuse atrophy, small vessel ischemic changes with confluent white matter FLAIR hyperintensities
Review of Systems
-
All other systems: Reviewed and negative
Physical Exam
-
Lethargic, but arousable, oriented to person, place, and time
Intact 1-step axial and appendicular commands, impaired 2-step commands, mild inattention
Intact verbal fluency, naming, repetition, comprehension
CN II-XII intact
No drift in upper or lower extremities
No ataxia on FNF bilaterally
Intact sensation throughout
Data Reviewed
-
MRI Head: Report Reviewed and Image Reviewed
Echocardiogram: Report Reviewed
Labs: Report Reviewed
Lipid Profile: Report Reviewed
[2025-06-04 07:44] VITALS: BP 134/81
[2025-06-04 07:45] LABS: Hematocrit 36.3 % (39.0-52.0); Hemoglobin 12.2 g/dL (13.0-18.0); Mean Corp Hgb Conc. 33.6 g/dL (33.0-37.0); Mean Corpuscular Volume 95.8 fL (80.0-94.0); Nucleated Red Blood Cells % 0 % (-); Platelet Count 144 10^3/uL (130-400); Red Cell Dist. Width 14.8 % (11.5-14.5)
[2025-06-04] MEDS: VITAMIN D3 (cholecalciferol) 25 MCG PO (08:11)
[2025-06-04] MEDS: NSS 1000 IV ×3 (08:11→16:28)
[2025-06-04] MEDS: OCUVITE SOFTGEL 1 CAP PO ×2 (08:11→20:49)
[2025-06-04] MEDS: OSCAL 500 + D 1000 MG PO (08:12)
[2025-06-04] MEDS: B COMPLEX w/VITAMIN C 1 CAPLET PO (08:12)
[2025-06-04] MEDS: LOW STRENGTH ASPIRIN 81 MG PO (08:12)
[2025-06-04] MEDS: ELIQUIS 5 MG PO ×2 (08:12→20:49)
[2025-06-04 08:13] LABS: Troponin I 0.118 ng/ml
[2025-06-04 08:24] LABS: Blood Urea Nitrogen 16 mg/dl (9-20); Calcium 8.7 mg/dl (8.4-10.2); Carbon Dioxide 23 mmol/L (22-30); Chloride 106 mmol/L (98-107); Estimated Creatinine Clearance 49 ml/min; Glucose 96 mg/dl (70-99); Potassium 4.4 mmol/L (3.5-5.1); Sodium 134 mmol/L (135-145); eGFR 59.63
[2025-06-04 08:44] LABS: Cortisol, Random 7.6 ug/dl
--- NOTE | 2025-06-04 08:54 | W.PN.HOSP.TC ---
Today's Communication/Plan
-
Continues EEG monitoring. IV fluid. Restarted Eliquis.
Assessment / Plan
Assessment / Plan
Physical exam:
General: Acutely ill
HEENT: Normocephalic, Atraumatic and Moist Mucous Membranes
Respiratory: Clear to Auscultation; Negative Wheezes, Rales or Rhonchi
Cardiac: Regular Rhythm and S1/S2
GI: Soft, Nontender and Nondistended
Musculoskeletal: No Clubbing, No Cyanosis and No Edema
Neuro: Awake, Alert and Oriented, still having expressive aphasia, left lower extremity weakness, no cranial nerve deficits.
Psych: Calm
A/P:
Concerns for seizures versus ?recrudescence of stroke:
History of recent cerebellar infarct
Neurology consult appreciated
Neurology recommended increasing Eliquis back to 5 mg twice a day which she is back on it.
MRI of the brain no acute stroke
Plan for a transthoracic echocardiogram
Plan for continuous EEG monitoring
PT OT eval
Discussed with over the phone yesterday
Discussed with neurology today via [place] text
MJ:
Improving
IV fluid
Avoid nephrotoxic
Monitor renal function in a.m.
Elevated troponin:
Suspect elevated troponin due to non-ischemic myocardial injury in the setting of neurological acute events and MJ and hypotension.
Follow-up trend since still not trending down
Follow-up echocardiogram
He remains chest pain-free
desk monitor
Hyponatremia:
Monitor trend
Paroxysmal atrial fibrillation:
Restarted back on Eliquis
Hypertension:
Continue hold antihypertensives and reevaluate tomorrow
Mild asymptomatic hypotension:
Given IV fluids to avoid brain hypoperfusion
Continue to monitor
Hyperlipidemia:
Continue home statin
LDL at goal 54
History of CAD:
Continue anticoagulation, antiplatelet, and statin.
History of PCI in the past.
Chest pain-free
Aortic stenosis status post TAVR:
Plan for echo
BPH:
Continue Flomax
Hypothyroidism:
Continue thyroid replacement
Chronic back pain:
Continue pain meds as needed
DVT prophylaxis:
Eliquis
CODE STATUS:
Full code
Total time spent on today's encounter was 52 minutes which included time spent in counseling the patient/family regarding diagnosis and treatment plan as listed above, goals of care, and symptom management. Case was discussed with nursing staff,
specialists, and care coordinators/case management. All labs and imaging personally reviewed by me. Remainder the time spent in detailed review of previous records, lab data, imaging, and other medical provider documentation.
Anticipated Discharge: 24 - 48 hours
Subjective/Interval History
-
Date of Service: June 04, 2025
Patient feels better overall but still having some intermittent episodes of aphasia. No weakness. No chest pain or shortness of breath.
Objective Data
-
Labs:
Laboratory Results
06/04/25
07:13
WBC 7.0
Hgb 12.2 L
Hct 36.3 L
Plt Count 144
Sodium 134 L
Potassium 4.4
Chloride 106
Carbon Dioxide 23
BUN 16
Creatinine 1.2
Glucose 96
Calcium 8.7
Vital Signs:
Vital Signs
Temp Pulse Resp BP Pulse Ox
97.5 F 86 18 134/81 98
06/04/25 07:44 06/04/25 07:44 06/04/25 07:44 06/04/25 07:44 06/04/25 07:44
I&O
06/03/25 06/04/25 06/05/25
06:59 06:59 06:59
Intake Total 1200 / 1200
Output Total 525 / 525 1850 / 1850
Balance -525 / -525 -650 / -650
[2025-06-04 11:46] VITALS: BP 138/70
[2025-06-04 15:53] VITALS: BP 145/78
[2025-06-04] MEDS: LIPITOR 40 MG PO (16:29)
--- NOTE | 2025-06-04 16:32 | CM ---
tire manager reviewed patient's chart and met with patient and patient lives with spouse in a 2 story home, 2 steps to enter, patient is independent with adl's and ambulation, no dme, patient drives.
PCP: Krishan Uriostegui
Pharmacy: [facility] in [place]
[2025-06-04 19:41] VITALS: BP 160/89
--- NOTE | 2025-06-04 20:39 | PTCARENOTE ---
Pt had order for EEG cont monitoring due to concern for transient amnestic episodes and seizures in AM. Upon arrival to room for evening, pt was not placed on monitoring. CLERK GUIDE/charge nurse notified. Rec to contact neuro. Per neuro, techs were
contacted but unable to complete. Neuro gave okay for pt to wait until AM for monitoring.
[2025-06-04 23:25] VITALS: BP 140/79
[2025-06-05 03:18] VITALS: BP 137/82
[2025-06-05] MEDS: SYNTHROID PO (06:06)
[2025-06-05] MEDS: SYNTHROID 25 MCG PO (06:10)
[2025-06-05 07:20] VITALS: BP 165/102
[2025-06-05 07:51] LABS: Hematocrit 37.4 % (39.0-52.0); Hemoglobin 13.0 g/dL (13.0-18.0); Mean Corp Hgb Conc. 34.8 g/dL (33.0-37.0); Mean Corpuscular Volume 96.6 fL (80.0-94.0); Platelet Count 148 10^3/uL (130-400); Red Cell Dist. Width 14.6 % (11.5-14.5)
[2025-06-05] MEDS: B COMPLEX w/VITAMIN C 1 CAPLET PO (08:11)
[2025-06-05] MEDS: ELIQUIS 5 MG PO ×2 (08:11→20:49)
[2025-06-05] MEDS: OSCAL 500 + D 1000 MG PO (08:11)
[2025-06-05] MEDS: LOW STRENGTH ASPIRIN 81 MG PO (08:11)
[2025-06-05] MEDS: OCUVITE SOFTGEL 1 CAP PO ×2 (08:11→20:49)
[2025-06-05] MEDS: VITAMIN D3 (cholecalciferol) 25 MCG PO (08:11)
[2025-06-05] MEDS: TYLENOL 650 MG PO ×2 (08:15→20:50)
[2025-06-05 08:23] LABS: Troponin I 0.061 ng/ml
[2025-06-05 08:43] LABS: Blood Urea Nitrogen 15 mg/dl (9-20); Calcium 8.9 mg/dl (8.4-10.2); Carbon Dioxide 21 mmol/L (22-30); Chloride 104 mmol/L (98-107); Estimated Creatinine Clearance 58 ml/min; Glucose 93 mg/dl (70-99); Potassium 3.9 mmol/L (3.5-5.1); Sodium 134 mmol/L (135-145); eGFR > 60.00
--- NOTE | 2025-06-05 09:27 | CARDSERVLU ---
Echocardiogram with [facility] completed after protocol screening completed. Allergies verified.
Patent IV site: _Left FA____
IV site flushed with 0.9% NaCl pre and post administration.
Diluted bolus method utilized to enhance visualization of ventricular witt.
Total volume given: __1.5__ mL
Patient tolerated all procedures well without complications.
[2025-06-05 11:40] VITALS: BP 140/75
--- NOTE | 2025-06-05 12:04 | PTCARENOTE ---
pt's Avendano removed.
--- NOTE | 2025-06-05 12:10 | W.PN.HOSP.TC ---
Today's Communication/Plan
-
EEG
neuro follow up
Assessment / Plan
Assessment / Plan
84yo M with PMHX of s/p TAVR, CVA with aphasia, Afib on eliauis, HLD, BPH came with one more episode of worsening aphasia,describead as he was not able to construct appropriate sentenses and he was aware of that. Lasted appt a day and slowly
improved. Also found MJ. Neurologist concerned for recrudescence of stroke, recommended toincrease Elqiuis to previous full dose and check EEG
A/P:
#Aphasia, concern for CV?TIA recrudescence vs seiZures
Seizure precautions
EEG
Neurology consult
MRI brain without new acute stroke
CTA neck with less then 50% b/l carotid bulb stenosis, no LVO
No Afib on tele
Cont ELiquis, increase to 5mg BID
Lipids - 54, HgbA1c 05/09/25 - 5.8%
TSH with reflex FT4 WNL as of 05/09/25
Echo: EF 60-65%, normal TAVR gradient, No regional wall motion abnormalities.
#MJ on admission
#Acute urinary retention with hematuria
Avendano placedc in ED, urine remained clear
No pyuria
Recommended outpatient urologist
TOV
cont tamsulosin
#Elevated troponin, most likely non-ischemic myocardial injury
no chest pain
decreasing
EKG with 1st degree AVB
#Afib, paroxysmal
rate control and Eliquis
#HLD
cont lipitor
DVT ppx Eliquis
Full code
I have spent at least 59min reviewing chart, test results, communication with consultants and providing direct patient care
Anticipated Discharge: Within 24 hours
Subjective/Interval History
-
Date of Service: June 05, 2025
Objective Data
-
Labs:
Laboratory Results
06/05/25
06:28
WBC 8.7
Hgb 13.0
Hct 37.4 L
Plt Count 148
Sodium 134 L
Potassium 3.9
Chloride 104
Carbon Dioxide 21 L
BUN 15
Creatinine 1.0
Glucose 93
Calcium 8.9
Vital Signs:
Vital Signs
Temp Pulse Resp BP Pulse Ox
97.5 F 86 18 140/75 96
06/05/25 11:40 06/05/25 11:40 06/05/25 11:40 06/05/25 11:40 06/05/25 11:40
I&O
06/04/25 06/05/25 06/06/25
06:59 06:59 06:59
Intake Total 1200 / 1200 1480 / 1480
Output Total 1850 / 1850 4050 / 4050
Balance -650 / -650 -2570 / -2570
Review of Systems
-
History Source: Patient
All other systems: Reviewed and negative
Physical Exam
-
General: Conversant
HEENT: Hearing Impaired
Respiratory: Clear to Auscultation
Cardiac: Regular Rhythm
GI: Soft, Nontender and Nondistended
Musculoskeletal: No Clubbing, No Cyanosis and No Edema
Neuro: Awake, Alert, Oriented and AO x 3
Psych: Calm
--- NOTE | 2025-06-05 13:55 | W.PN.NEURO.1 ---
Addendum entered and electronically signed by Mick Lin MD 06/05/25 20:56:
I saw and examined the patient along with the nurse practitioner Mary De and agree with her assessment and management plan. Given below is my addendum.
The patient is an 84 years old male who presented to the hospital with difficulty in finding words and confusion as per his , however at this time the patient returned to his baseline. The EEG done today was unremarkable. MRI of the brain does
not show any acute infarct.
On neurologic examination the patient is alert and oriented x 3, speech is clear, he does not have any limb ataxia and the motor strength is grossly within normal limits. The patient was able to walk without any support.
According to the patient's the patient mental status had returned to his baseline. The patient did not have a new stroke as seen on MRI and also the EEG was unremarkable. The patient does have a history of a right cerebellar hemisphere stroke
recently which was seen on the MRI which was done on 05/08/2025. The patient has a history of atrial fibrillation and is on Eliquis.
The plan is to get the patient on Eliquis 5 mg twice a day and aspirin 81 mg daily.
Will sign off. Please call if you have any question.
Original Note:
Today's Communication / Plan
-
- continue apixiban 5 mg BID for afib
- goal LDL <70 check LDL continue atorvastatin 40 mg nightly for now
- EEG pending
- brain MRI negative for acute infarct
- BP goal normotension given no LVO
All questions encouraged and answered, plan of care discussed with Dr. Lin, patient and
Neuro Assessment/Plan
Assessment
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 Symptoms described as about 1 hour of acute onset repetitive speech, word finding
difficulty and confusion. Neurological examination today improved compared to prior, with mild inattention however resolved expressive/Broca's aphasia vs 06/03. No evidence of interval infarct on repeat MRI, however diffuse bitemporal-parietal
volume loss potentially suggestive of underlying neurodegenerative process.
On further history today, his reports that his slowness to respond has been occurring for several months, however episodes of aphasia have been more acute over the past few weeks. Overall, in the absence of new stroke, differential for episodic
aphasia includes focal seizures vs confusional episodes i/s/o possible neurodegenerative disorder vs cardiogenic. Recommend EEG to further evaluate - will attempt to capture event and determine if EEG and/or telemetry correlate.
Differential also includes infection/toxic metabolic cause (workup negative to date apart from mild MJ). Symptoms are unlikely to be secondary to prior right cerebellar infarct given localization. No high grade stenosis on CTA.
Plan
- continue apixiban 5 mg BID for afib
- goal LDL <70 check LDL continue atorvastatin 40 mg nightly for now
- EEG pending
- brain MRI negative for acute infarct
- BP goal normotension given no LVO
Subjective/Objective
Subjective Data
Date of Service: June 05, 2025
No acute overnight events. Per patient and , patient back to baseline.
Objective Data
Vital Signs
Temp Pulse Resp BP Pulse Ox
97.5 F 86 18 140/75 96
06/05/25 11:40 06/05/25 11:40 06/05/25 11:40 06/05/25 11:40 06/05/25 11:40
Lab Results
06/05/25 06:28
06/05/25 06:28
PT 15.3 Sec (11.4-14.6) H 06/02/25 16:45
INR 1.20 06/02/25 16:45
APTT 34.7 Sec (23.4-35.0) 06/02/25 16:45
Sodium 134 mmol/L (135-145) L 06/05/25 06:28
Potassium 3.9 mmol/L (3.5-5.1) 06/05/25 06:28
BUN 15 mg/dl (9-20) 06/05/25 06:28
Glucose 93 mg/dl (70-99) 06/05/25 06:28
Calcium 8.9 mg/dl (8.4-10.2) 06/05/25 06:28
LDL Cholesterol, Calc 54 mg/dl 06/03/25 09:12
Patient Allergies
metoprolol Allergy (Verified 06/02/25 16:59)
Rash
Sulfa (Sulfonamide Antibiotics) Allergy (Verified 06/02/25 16:59)
'throat inflamed'
Physical Exam
-
General: Comfortable and Appears Stated Age
HEENT: Normocephalic and Atraumatic
Neck: Full Range of Motion
Respiratory: No Dyspnea
Cardiac: No JVD
GI: Non-distended
Skin: Unremarkable
Extremities: No Clubbing, No Cyanosis and No Edema
Psych: Unremarkable
Extended Neurological Exam
Mood & Affect: Mood Unremarkable
Attention Span & Concentration: Awake, Alert, Interactive and No Difficulty with 2 Step Request
Memory: Unremarkable
Speech: Quality Unremarkable, Quantity Unremarkable and Rate of Production Unremarkable
Cranial Nerve VII: Facial Symmetry: Normal Facial Symmetry
Cranial Nerve VIII: Hearing: Grossly Reduced
Muscle Strength, Overall: Full Throughout
Pronator Drift: No Drift in Upper Extremities and No Drift in Lower Extremities
Data Reviewed
-
CT-A: Report Reviewed and Image Reviewed
CT Head: Report Reviewed and Image Reviewed
MRI Head: Report Reviewed and Image Reviewed
EEG: Pending
Medical Test Reports: Report Reviewed
Labs: Report Reviewed
Reviewed with: Physician, Patient and Family
Old Records: Summarized
--- NOTE | 2025-06-05 14:16 | EEG.RPT ---
Electroencephalogram Report
Recording
Date of EE06/05/25
Type of EEG: Routine
Length of EEG recordin minutes
Done with Video Recording: Yes
Patient Status: Inpatient
Recording Conditions: Awake, Drowsy and Asleep
Hyperventilation Performed: No
Photic Stimulation Performed: Yes
Report
LESS THAN 1 HOUR EEG INTERPRETATION:
Likely unremarkable EEG for age in wakefulness and sleep
CLINICAL CORRELATION:
Although normative values not been established for a person of this advanced age this study was unremarkable in its appearance.
An unremarkable EEG does not rule out a diagnosis of epilepsy. If clinical suspicion for seizure persists, a prolonged recording may be warranted.
Clinical correlation is advised.
METHODS:
A 21 channel digitized electroencephalogram (EEG) was performed in the Clinical Neurophysiology Laboratory. The 10/20 international system of electrode placement was used with ECG and lateral/vertical eye movements recorded. Video was recorded.
Persyst quantitative EEG analysis was performed.
IMPRESSION(S):
Quality of study
Good
Background
Unremarkable anterior-posterior voltage gradient
Maximum: theta frequency, rarely alpha
No significant asymmetries of background activity noted
Sleep
Drowsiness present
Stage 1 sleep present
Photic Stimulation
Failed to activate the record
ECG
Unremarkable
[2025-06-05 15:29] LABS: HDL Cholesterol 59 mg/dl; LDL Cholesterol, Calculated 51 mg/dl; Very Low Density Lipoprotein 14 mg/dl (0-30)
[2025-06-05 15:48] VITALS: BP 145/74
--- NOTE | 2025-06-05 16:29 | CM ---
CM met with patient nad his at bedside. Discussed Pt/Ot recommendations for acute rehab. However, patient and his fee that patient has improved since evals were completed on 06/03. They are hoping that patient can return home upon d/c. DAVID
will follow up with patient and his after he is seen by PT/OT on 06/06.
Plan: home vs. rehab depending upon progress
--- NOTE | 2025-06-05 16:52 | CON.MD ---
Consultation - Medical
-
Chief Complaint:�Aphasia
�
History of Present Illness:�84-year-old male with PMH (as below) presented to [facility] on 06/02/2025 with difficulty speaking and confusion. At home he is able to drive and perform daily activities. From the recent stroke he had he had
aphasia which is now worse in the emergency department. He takes Eliquis for stroke prevention and was not a TNK candidate. He was seen by neurology with neurologic exam improved on 06/05, with mild inattention and resolved expressive/Broca's
aphasia compared to 06/03. No evidence of interval infarct on repeat MRI, however diffuse bitemporal parietal volume loss potentially suggesting an underlying neurodegenerative process. Differential includes focal seizures versus confusional
episodes such as a neurodegenerative disorder versus cardiogenic. EEG ordered. No signs of infection/toxic metabolic cause.
Patient notes he is feeling much better today. Feels his speech is back at baseline. He denies any current concerns that have happened since coming to the hospital. He feels like he is at his prior baseline after above for stroke. He is not
interested in doing inpatient rehab and wants to go back to outpatient rehab where he was before. He denies any difficulties with swallowing, seeing, sensation, or weakness.
�
Past Medical History:�compression fracture of spine, Degenerative disc disease, lumbar, Coronary artery disease, Dyslipidemia, ED (erectile dysfunction), Bilateral renal cysts, Severe aortic stenosis, Bifascicular block, Essential hypertension,
kidney stones, Macular degeneration, Paroxysmal atrial fibrillation, BPH (benign prostatic hyperplasia), Stage 3a chronic kidney disease (CKD), Atrial ectopy, Ischemic right cerebellar with aphasia, Mild anemia
Procedure History:�Implantable loop recorder present
Family History:�
�
Social History:�
Functional Level Premorbidly:�Independent with all activities�
Functional Level Currently:�Regular solid and thin liquid diet. Has aphasia but can continue with speech for this when out of the acute setting. 12/20�min assist transfers and ambulating 3 feet min assist x 2. Dependent for toileting, min assist
lower extremity self-care.
�
Tobacco:�Denies�
Alcohol:�Denies�
Drug use:�Denies�
�
Lives with:�
24-hour assistance available:�Yes
Number of floors:�2
# steps to enter:�2
# steps to second floor: Full flight
Potential First floor set up:�No
Driving:�Yes
Occupation:�Retired
�
�
Allergies:�
Temp Pulse Resp BP Pulse Ox
97.7 F 92 18 145/74 99
06/05/25 15:48 06/05/25 15:48 06/05/25 15:48 06/05/25 15:48 06/05/25 15:48
Height 5 ft 11 in
Actual Weight 74.899 kg
Body Mass Index (BMI) 23.0
�
Review of Systems:�
Constitutional: (x) abNormal _tired
Eye: (x) Normal _
Ear/Nose/Throat: (x) Normal _
Respiratory: (x) Normal _
Cardiovascular: (x) Normal _
Gastrointestinal: (x) Normal _
Genitourinary: (x) Normal _
Musculoskeletal: (x) Normal _
Integumentary: (x) Normal _
Neurologic: (x) abNormal _recent stroke with aphasia, feels he is resolved.
Psychiatric: (x) Normal _
Endocrine: (x) Normal _
Hematologic/Lymphatic: (x) Normal _
Allergic/Immunologic: (x) Normal _
�
Medications:�
Active Current Visit Medication List
Category Date Time Status
Acetaminophen [Tylenol/Feverall] Med 06/02/25 21:25 Active
650 mg RECTAL Q4HPRN PRN
Acetaminophen [Tylenol] Med 06/02/25 21:25 Active
650 mg PO Q4HPRN PRN
Apixaban [Eliquis] Med 06/03/25 20:00 Active
5 mg PO BID
Aspirin Chewable [Low Strength Aspirin] Med 06/03/25 08:00 Active
81 mg PO DAILY
Atorvastatin [Lipitor] Med 06/03/25 18:00 Active
40 mg PO QPM
Calcium Carbonate/Vitamin D3 [Oscal 500 + D] Med 06/03/25 08:00 Active
1,000 mg PO DAILY
Cholecalciferol (Vitamin D3) [VITAMIN D3 ( Med 06/03/25 08:00 Active
cholecalciferol)]
25 mcg PO DAILY
Flush (0.9% Sodium Chloride) [Flush (Nss)] Med 06/03/25 13:00 Active
See Dose Instructions IV PER PROTOCOL
Levothyroxine [Synthroid] Med 06/06/25 06:00 Active
37.5 mcg PO DAILY@0600
NIFEdipine EXTENDED RELEASE [Procardia Xl (Extended Med 06/03/25 08:00 Hold
Release)]
30 mg PO DAILY
Tamsulosin [Flomax] Med 06/02/25 22:00 Hold
0.4 mg PO Q48H
Triamcinolone Cream [Triamcinolone Acetonide 0.1% Cream Med 06/02/25 21:38 Active
]
1 applic TOPICAL DAILYPRN PRN
Vit C/Vit E/Lutein/Min/Hepzibah-3 [Ocuvite Softgel] Med 06/03/25 08:00 Active
1 cap PO BID
Vitamin B Complex with C [B COMPLEX w/VITAMIN C] Med 06/03/25 08:00 Active
1 caplet PO DAILY
�
Vitals:�
Temp Pulse Resp BP Pulse Ox
97.7 F 92 18 145/74 99
06/05/25 15:48 06/05/25 15:48 06/05/25 15:48 06/05/25 15:48 06/05/25 15:48
Height 5 ft 11 in
Actual Weight 74.899 kg
Body Mass Index (BMI) 23.0
�
Physical Exam:�
General Appearance/Observation: Well-developed, well-nourished male in no apparent distress.�
Pain/Comfort Assessment: Denies�
Mood/Affect: Appropriate�
�
Integumentary/Operative Site:�No lesions noted during course of exam
�
Eyes: Conjunctiva/Lids: normal��� Pupils: pupils equal round and reactive to light and Accommodation
Ears/Nose/Throat: oral mucosa moist, throat clear.������������ Lips/Teeth/Gums: normal
Cardiovascular: Heart: regular, no murmur�
Pulses: dorsalis pedis 2+ bilaterally�
Respiratory: Respiratory Effort/Chest Expansion: normal������ Auscultation: Clear to auscultation bilaterally
Gastrointestinal: abdomen not tender, no distension, normal abdominal bowel sounds
Genitourinary: No Avendano�
Rectal Exam: Deferred�
Extremities:�Edema: None�Cyanosis: None�Trophic�changes: None
�
Neurology Exam:
Orientation: Alert, Oriented to self, Time, Place�
Memory: Intact for recent medical concerns
Repetition: Intact
Comprehension: Intact
Two step command: Intact
Naming: Intact
-Able to read clock appropriately across the room.
Cranial Nerves:
�� CNII:�Pupillary light reflex: Intact���Visual Field: Intact
�� CN III, IV, : Extraocular muscles: Intact�
�� CN V:�Facial Sensation�at�Forehead: Intact,�Maxilla: Intact,�Mandible: Intact
�� CN VII:�Facial movement: Symmetric
�� CN VIII:�Hearing: Impaired, has hearing aids but seems to miss some conversation.
�� CN IX/X:�Speech & swallow: Normal,�Position of Uvula: Midline
�� CN XI:�Shoulder shrug: Symmetric
�� CN XII:�Tongue protrusion: Midline
Sensory:
�� Light touch: Intact in bilateral upper and lower extremities, no extinction to double simultaneous stimulation.
�
Reflexes:
�� Biceps: 2+ bilaterally
�� Brachioradialis: 2+ bilaterally
�� Triceps: 2+ bilaterally
�� Patellar: 2+ bilaterally
�� Achilles: 2+ bilaterally
�� Babinski: Down going bilaterally
�� Clonus: None
�� Wanda: Negative bilaterally�
Cerebellar: Dysmetria/Ataxia: None�
Musculoskeletal: Motor: (Manual muscle scale 0-5)�
Muscle SA EF WE EE FF FA HF KE DF EHL PF
Right� 4 5 5 5 5 4 4 5 5 5 5
Left 4 5 5 5 5 4 4 5 5 5 5
�
Tone: Normal in all extremities�
Range of Motion: Passively within functional limits in all extremities�
�
Lab Results
Laboratory Data
06/05/25 06:28
06/05/25 06:28
PT 15.3 Sec (11.4-14.6) H 06/02/25 16:45
INR 1.20 06/02/25 16:45
APTT 34.7 Sec (23.4-35.0) 06/02/25 16:45
Total Bilirubin 0.3 mg/dl (0.2-1.3) 06/02/25 16:45
AST 25 U/L (17-59) 06/02/25 16:45
ALT 22 U/L (0-50) 06/02/25 16:45
Alkaline Phosphatase 77 U/L (38-126) 06/02/25 16:45
Total Protein 7.3 g/dl (6.3-8.2) 06/02/25 16:45
Albumin 4.2 g/dl (3.5-5.0) 06/02/25 16:45
�
Diagnostic Results:�as per HPI�
�
Assessment
84y/o right-handed M PMH (compression fracture of spine, Degenerative disc disease, lumbar, Coronary artery disease, Dyslipidemia, ED (erectile dysfunction), Bilateral renal cysts, Severe aortic stenosis, Bifascicular block, Essential hypertension,
kidney stones, Macular degeneration, Paroxysmal atrial fibrillation, BPH (benign prostatic hyperplasia), Stage 3a chronic kidney disease (CKD), Atrial ectopy, Ischemic right cerebellar with aphasia, Mild anemia�) with 06/02/2025 aphasia with no new
MRI concerns, possibly seizure versus neurodegenerative versus other etiology. Per neurology patient has returned back to his prior baseline on 06/05.
Plan�
PM&R�PT/OT to increase independence with ADLs, improve balance, coordination, endurance, strength, mobility, community reintegration, decreased burden of care on others and family education.�
Recurrent aphasia: Unclear etiology, no new stroke. Does not appear to be infectious or metabolic per neurology. EEG to rule out seizure. Patient peers to have returned back to his recent baseline on 06/05 per neurology and patient. Clear during
my exam. Has some trouble understanding commands which appears to be more a hearing related issue.
Recent ischemic right cerebellar CVA: Secondary prophylaxis with aspirin and Eliquis, statin, and blood pressure control (SBP less than 180 and diastolic less than 100 to participate with therapy for ischemic stroke). Continue to monitor neurologic
status.
- Has loop recorder
Aphasia: speech �
HTN: Nifedipine 30 mg daily, monitor closely�
HLD: Statin�
Coronary artery disease�: Aspirin, statin, not on beta-tisha�
Atrial fibrillation: Eliquis anticoagulation and not on rate control medications.������������������������������������������
Hypothyroidism: levothyroxine�
�
Psych: Psychology consult.� Monitor mood, medications as needed.�
Skin: monitor for pressure sores/rashes/lesions.�
Pain: acetaminophen or oxycodone as needed.�
Bowel: Colace and Senna, PRN bisacodyl.�
Bladder: Time void, PVRs, PRN straight cath.�
GI Prophylaxis: Pantoprazole�
DVT Prophylaxis: Mechanical and Eliquis
Pulmonary: Incentive spirometry�
Safety: Continue to reinforce assistance with all transfers.�
Code Status:� Full code per chart
Dispo�(date/plan/equipment needs): Home with family care.� Social history reviewed.�
Functional and Medical Goals:�Modified Independent with ADL�s, ambulation, transfers�
Discharge Destination:�Patient refusing any inpatient rehabilitation. He wants to do outpatient rehab. He feels that he is now back to his baseline. He has a relatively benign exam aside from some difficulty with hearing. Suggest reevaluation
with physical and Occupational Therapy. Patient wants to go home with outpatient therapies at this time. I suspect PT and OT will be okay with him going home to outpatient therapy based upon his current status.
A total of 60 minutes were spent with the patient preparing for the evaluation, obtaining history, performing examination and evaluation, counseling, data review, case management, care coordination, psychiatric orderly, and EMR documentation.
�
Thank you for allowing me to care for your patient. Please contact me with any questions or concerns.
Consultation
-
Date/Time Consultation Requested: 06/02/25
Date/Time Consultation Performed: 06/05/25
Requesting Provider: Dr. Temo Clark
Performing Provider: Dr. Dhiraj Waite
Reason for Consultation: Debility
[2025-06-05] MEDS: LIPITOR 40 MG PO (16:56)
[2025-06-05 19:00] VITALS: BP 153/82
[2025-06-05 22:58] VITALS: BP 134/68
[2025-06-06 03:11] VITALS: BP 112/74
[2025-06-06] MEDS: SYNTHROID 37.5 MCG PO (05:53)
[2025-06-06 07:20] VITALS: BP 145/86
[2025-06-06] MEDS: ELIQUIS 5 MG PO (07:52)
[2025-06-06] MEDS: OCUVITE SOFTGEL 1 CAP PO (07:52)
[2025-06-06] MEDS: B COMPLEX w/VITAMIN C 1 CAPLET PO (07:52)
[2025-06-06] MEDS: LOW STRENGTH ASPIRIN 81 MG PO (07:52)
[2025-06-06] MEDS: OSCAL 500 + D 1000 MG PO (07:52)
[2025-06-06] MEDS: TYLENOL 650 MG PO (07:53)
[2025-06-06] MEDS: VITAMIN D3 (cholecalciferol) 25 MCG PO (07:53)
[2025-06-06 08:48] VITALS: BP 140/91
--- NOTE | 2025-06-06 10:06 | W.PN.HOSP.TC ---
Today's Communication/Plan
-
dc
Assessment / Plan
Assessment / Plan
84yo M with PMHX of s/p TAVR, CVA with aphasia, Afib on Eliquis, HLD, BPH came with one more episode of worsening aphasia, described as he was not able to construct appropriate sentences and he was aware of that. Lasted appt a day and slowly
improved. Also found MJ. Neurologist concerned for recrudescence of stroke, recommended to increase Elqiuis to previous full dose and check EEG
A/P:
#Aphasia, concern for CV?TIA recrudescence vs seiZures
Seizure precautions
EEG without sings of epileptiform activity
Neurology consult
MRI brain without new acute stroke
CTA neck with less then 50% b/l carotid bulb stenosis, no LVO
No Afib on tele
Cont ELiquis, increase to 5mg BID
Lipids - 54, HgbA1c 05/09/25 - 5.8%
TSH with reflex FT4 WNL as of 05/09/25
Echo: EF 60-65%, normal TAVR gradient, No regional wall motion abnormalities.
#MJ on admission
#Acute urinary retention with hematuria
Avendano placedc in ED, urine remained clear
No pyuria
Recommended outpatient urologist
TOV
cont tamsulosin
#Elevated troponin, most likely non-ischemic myocardial injury
no chest pain
decreasing
EKG with 1st degree AVB
#Afib, paroxysmal
rate control and Eliquis
#HLD
cont lipitor
DVT ppx Eliquis
Full code
I have spent at least 36 min reviewing chart, test results, communication with consultants and providing direct patient care
Anticipated Discharge: Today
Subjective/Interval History
-
Date of Service: June 06, 2025
Objective Data
-
Vital Signs:
Vital Signs
Temp Pulse Resp BP Pulse Ox
97.8 F 89 16 145/86 92
06/06/25 07:20 06/06/25 07:20 06/06/25 07:20 06/06/25 07:20 06/06/25 07:20
I&O
06/05/25 06/06/25 06/07/25
06:59 06:59 06:59
Intake Total 1480 / 1480 1200 / 1200
Output Total 4050 / 4050 500 / 500
Balance -2570 / -2570 700 / 700
Review of Systems
-
History Source: Patient
All other systems: Reviewed and negative
Physical Exam
-
General: No Apparent Distress
HEENT: Normocephalic
Neuro: Awake, Alert, Oriented, AO x 3 and Slurred Speech (chronic)
Psych: Calm
--- NOTE | 2025-06-06 10:12 | CM ---
CM spoke with patient and his at bedside.Patient was seen by PT this am. Resumption of outpatient PT is recommended. His also plans to set up outpatient Speech. She already has script from last admission. DAVID confirmed with Outpatient Rehab
Dept that patient does not need a new script. Patient's will provide transportation home. IMM given.
PCP: Krishan Uriostegui
Pharmacy: [facility]
Plan: home with , outpt PT and Speech
--- NOTE | 2025-06-06 10:13 | W.DCSUMMARY ---
Discharge Summary
Discharge Data
Date of Admission: 06/02/25
Date of Discharge: 06/06/25
-
Pending Results: No
Hospital Course
84yo M with PMHX of s/p TAVR, CVA with aphasia, Afib on Eliquis, HLD, BPH came with one more episode of worsening aphasia, described as he was not able to construct appropriate sentences and he was aware of that. Lasted appt a day and slowly
improved. Also found MJ. Neurologist concerned for recrudescence of stroke, recommended to cont Eliquis. EEG showed no epileptiform activity, since TSH mildly elevated - Synthroid dose was increased to 37.5mcg daily, TFT with PCP in 2-3 weeks.
Passed TOV. Patient remaied asympromatic >24h before d/c. Asper Physiatrst assesment - medcially stable for dc home. Urology referall to be provided for hematuria
I have spent at least 36 min reviewing chart, test results, communication with consultants and providing direct patient care
Patient was managed for:
#Aphasia, concern for CV?TIA recrudescence vs seiZures
#MJ on admission
#Acute urinary retention with hematuria
#Elevated troponin, most likely non-ischemic myocardial injury
#Afib, paroxysmal
#HLD
Discharge Plan
-
Patient Disposition: Home with Home Care
Discharge Diagnosis/Procedures: Dysarthria
Diet: Low Cholesterol
Activity: As tolerated
Driving Restrictions: No driving
Blood Work: BMP in 1 week with family doctor, Thyroid function test in 2-3 weeks with family doctor
Referrals:
Chuy Moon MD [Active, Urology] - in two to four weeks
Referral Note: for hematuria
Krishan Uriostegui DO [Family Provider, Family Practice] - in less than 1 week
Referral Note: BMP in 1 week with family doctor, Thyroid function test in 2-3 weeks with family doctor
Prescriptions:
New
levothyroxine 25 mcg Tablet
37.5 mcg PO DAILY@0600 Qty: 30 0RF
Continued
tamsulosin 0.4 MG capsule
0.4 mg PO Q48H
vitamin B complex 1 TAB tablet
1 tab PO DAILY
PreserVision AREDS 1 CAP capsule
1 cap PO BID
omega 3-eng-qkx-fish oil [Fish Oil] 1 EACH capsule
1 cap PO DAILY
calcium carbonate [Calcium 600] 600 mg calcium (1,500 mg) Tablet
1,200 mg PO DAILY
sildenafil 100 mg Tablet
100 mg PO DAILYPRN PRN (Reason: sexual activity)
nifedipine 30 MG tablet extended release
30 mg PO DAILY
mometasone 0.1 % Cream
1 applic TOPICAL DAILYPRN PRN (Reason: itchy bumps)
cholecalciferol (vitamin D3) 25 mcg (1,000 unit) Tablet
25 mcg PO DAILY
atorvastatin 20 MG tablet
40 mg PO QPM Qty: 30 0RF
Eliquis 5 mg Tablet
5 mg PO BID
Discontinued
levothyroxine 25 mcg Tablet
25 mcg PO DAILY
Discharge Orders:
Discharge Patient (As Directed); Ordered 06/06/25
Ordered By: Alex Beavers
Discharge Date and Time
Print Language: ARGENTINE
[2025-06-06 10:55] VITALS: BP 138/84
== END 2025-06-06 11:47 | disposition home health service (06) | DRG 683 ==
LOC: 4 WEST ACU 19:11
PROVIDERS: Hospitalist; ADMITTING PHYSICIAN Internal Medicine; ATTENDING PHYSICIAN Internal Medicine; CONSULT PHYSICIAN Physical Medicine & Rehabilitation; CONSULT PHYSICIAN Student in an Organized Health Care Education/Training Program; EMERGENCY PHYSICIAN Student in an Organized Health Care Education/Training Program; FAMILY PHYSICIAN Family Medicine
DX: N17.9 Acute kidney failure, unspecified (principal); E87.1 Hypo-osmolality and hyponatremia; I5A Non-ischemic myocardial injury (non-traumatic); I12.9 Hypertensive chronic kidney disease with stage 1 through stage 4 chronic kidney disease, or unspecified chronic kidney disease; N18.31 Chronic kidney disease, stage 3a; N40.1 Benign prostatic hyperplasia with lower urinary tract symptoms; I48.0 Paroxysmal atrial fibrillation; E03.9 Hypothyroidism, unspecified; Z79.01 Long term (current) use of anticoagulants; I69.320 Aphasia following cerebral infarction; Z87.891 Personal history of nicotine dependence
CPT/HCPCS: 0042T; 51702; 51798; 70450; 70496; 70498; 70551; 80048; 80053; 80061; 82533; 82962; 84439; 84443; 84484; 85025; 85027; 85610; 85730; 92523; 92610; 93005; 93308; 93321; 93325; 95816; 97163; 97167; 97530; 99285; Q9950; Q9967

== ENCOUNTER 2025-06-07 04:38 | Emergency (ER) | payer MEDICARE, OTHER, SELFPAY ==
[2025-06-07] VITALS (9 sets, daily range): BP systolic 111–152; BP diastolic 70–89; PULSE 100
[2025-06-07] MEDS: ZOFRAN ODT (ORALLY DISINTEGRATING) 4 MG PO (05:24)
--- NOTE | 2025-06-07 05:29 | ED.GENMED ---
History of Present Illness
<Israel Lomas PA-C - Last Filed: 06/09/25 20:00>
General
Chief Complaint: Fall
Time Seen by Provider: 06/07/25 05:01
History of Present Illness
History of Present Illness:
84-year-old male with history of recent stroke currently on Eliquis presents to the emergency department via EMS from home after multiple falls. Apparently initially rolled out of bed while getting up, promptly while walking to the bathroom
incidentally urinated on the floor and slipped in the urine resulting in a fall with head strike. Reporting neck pain and nausea at this time. LOC is unknown. Was just discharged from his hospital yesterday after mental status changes and was
felt to be due to recrudescence of prior stroke versus seizures. Patient offers no organic complaints
Past History
<Israel Lomas PA-C - Last Filed: 06/09/25 20:00>
Past History
ED Past Medical History: CAD, Hypercholesterolemia, Other (Cervical DJD, pinched nerve in his neck with intermittent 'pins and needles ' in both upper extremities. Low back pain, gastritis), Other (Stress fractures middle and upper back) and Other
(Lumbar disc disease with L3-4 L4-5 bulging disks)
ED Past Surgical History: Appendectomy, Cardiac (Stent X1) and Other (Umbilcal hernia)
Social History
Tobacco: Former smoker
Alcohol: Occasional
Personal:
Living: with family
Employment: Employed
Review of Systems
<Israel Lomas PA-C - Last Filed: 06/09/25 20:00>
Review of Systems
Allergies reviewed?: Yes
All Other Systems: ROS reviewed and negative except as documented in HPI and ROS
Phy Exam
<Israel Lomas PA-C - Last Filed: 06/09/25 20:00>
Physical Exam
Physical Exam:
GEN: Well appearing, NAD, WDWN
HEENT: No cephalohematoma, oral mucosa moist, no scleral icterus, no nasal congestion
Cardiac: Regular rate and rhythm, no murmur
Lung: No respiratory distress, no tachypnea, lungs clear to auscultation
MSK: No gross deformity or injuries. No ecchymosis or signs of trauma to the upper or lower extremities, pelvis stable with no crepitus
Skin: Good color, no pallor or jaundice, no rashes
Neuro: AO x3; CN II-XII grossly intact. BUE strength 5/5 in all irby, sensation intact and symmetric. BLE strength 5/5 in all irby, sensation intact and symmetric
Psych: Calm, cooperative
Course
<Israel Lomas PA-C - Last Filed: 06/09/25 20:00>
Orders/Labs/Results
Orders:
Orders
06/07/25 04:42
CT Head W/o Iv Contrast Urgent
Comment:
Reason For Exam: fell, hit head??
Cervical Spine wo Contrast CT [CT Cervical Spine W/o Iv Contr] Urgent
Comment:
Reason For Exam: fell, hit head??
06/07/25 04:47
EKG [Electrocardiogram (*1)] Urgent
Reason for Study: Fatigue / Weakness
06/07/25 04:48
EKG- Treatment ONCE
06/07/25 05:17
Ondansetron Orally Disint [Zofran Odt (Orally Disintegrating)] 4 mg PO NOW STA
06/07/25 06:41
Case Management Consult ONCE
Case Management Consult: VN/Home Care
Pt Eval And Treat Urgent
Activity Level: Ambulate
Vital Signs
Initial and Last Documented VS:
Initial Vital Signs
Pulse Resp BP Pulse Ox
122 24 138/78 94
06/07/25 04:42 06/07/25 04:42 06/07/25 04:42 06/07/25 04:42
Last Documented Vital Signs
Pulse Resp BP Pulse Ox
102 35 111/76 94
06/07/25 09:15 06/07/25 09:15 06/07/25 09:00 06/07/25 06:01
<Roel Mccartney Jr., PA-C - Last Filed: 06/07/25 08:58>
Orders/Labs/Results
Orders:
Orders
06/07/25 04:42
CT Head W/o Iv Contrast Urgent
Comment:
Reason For Exam: fell, hit head??
Cervical Spine wo Contrast CT [CT Cervical Spine W/o Iv Contr] Urgent
Comment:
Reason For Exam: fell, hit head??
06/07/25 04:47
EKG [Electrocardiogram (*1)] Urgent
Reason for Study: Fatigue / Weakness
06/07/25 04:48
EKG- Treatment ONCE
06/07/25 05:17
Ondansetron Orally Disint [Zofran Odt (Orally Disintegrating)] 4 mg PO NOW STA
06/07/25 06:41
Case Management Consult ONCE
Case Management Consult: VN/Home Care
Pt Eval And Treat Urgent
Activity Level: Ambulate
Vital Signs
Initial and Last Documented VS:
Initial Vital Signs
Pulse Resp BP Pulse Ox
122 24 138/78 94
06/07/25 04:42 06/07/25 04:42 06/07/25 04:42 06/07/25 04:42
Last Documented Vital Signs
Pulse Resp BP Pulse Ox
102 35 111/76 94
06/07/25 09:15 06/07/25 09:15 06/07/25 09:00 06/07/25 06:01
<Israel Lomas PA-C - Last Filed: 06/09/25 20:00>
MDM/Problems Addressed
MDM/Problems Addressed:
Imaging is negative for acute intracranial bleed or C-spine fracture.
<Israel Lomas PA-C - Last Filed: 06/09/25 20:00>
*Pulse Oximetry
SaO2: 94
<Roel Mccartney Jr., PA-C - Last Filed: 06/07/25 08:58>
*Pulse Oximetry
Patient hypoxic: no (94)
*Critical Care Note
Total Time (30-74mins, 75-104mins- exclusive of procedures): Not Applicable
<Roel Mccartney Jr., PA-C - Last Filed: 06/07/25 08:58>
Update Note
Update Note:
0830: Patient assessed by PT as well as case management. They will help set up home physical therapy and extra home care as well as give him a walker to help with ambulation. Otherwise stable for discharge.
ED Attending Note
<Israel Lomas PA-C - Last Filed: 06/09/25 20:00>
-
Portions of this chart may have been created with voice recognition software.� Occasional wrong word or��sound alike� substitutions may have occurred due to the inherent limitations of voice recognition software.
Discharge Plan
Departure
Patient Disposition: Home (Routine Discharge)
Date of Disposition: 06/07/25
Time of Disposition: 08:57
Patient with high blood pressure during this ER visit?: No
Condition: Good
Covid-19: Not Applicable
Discharge Problem:
Fall
Instructions: Preventing falls in adults
Prescriptions:
No Action
tamsulosin 0.4 MG capsule
0.4 mg PO Q48H
vitamin B complex 1 TAB tablet
1 tab PO DAILY
PreserVision AREDS 1 CAP capsule
1 cap PO BID
omega 3-skq-fcc-fish oil [Fish Oil] 1 EACH capsule
1 cap PO DAILY
calcium carbonate [Calcium 600] 600 mg calcium (1,500 mg) Tablet
1,200 mg PO DAILY
sildenafil 100 mg Tablet
100 mg PO DAILYPRN PRN (Reason: sexual activity)
nifedipine 30 MG tablet extended release
30 mg PO DAILY
mometasone 0.1 % Cream
1 applic TOPICAL DAILYPRN PRN (Reason: itchy bumps)
cholecalciferol (vitamin D3) 25 mcg (1,000 unit) Tablet
25 mcg PO DAILY
atorvastatin 20 MG tablet
40 mg PO QPM Qty: 30 0RF
Eliquis 5 mg Tablet
5 mg PO BID
levothyroxine 25 mcg Tablet
37.5 mcg PO DAILY@0600 Qty: 30 0RF
Referrals:
Krishan Uriostegui DO [Family Provider, Family Practice]
Activity Restrictions/Additional Instructions:
You came to the emergency department today after falls.. Reassuring assessment with CT scans. Please use the walker and follow-up with PT and your primary care team. Return for any worsening, new or concerning symptoms.
Interventions
Interventions:
*General Assessment Last Done: 06/07/25 04:58
*Neglect/Abuse Screening Last Done: 06/07/25 04:42
*ED COVID-19 Vaccine History Last Done: 06/07/25 04:58
*ED Influenza Vaccine History Last Done: 06/07/25 04:58
[facility] Fall Risk Assessment Tool Last Done: 06/07/25 07:21
*Risk Screen - Suicide (C-SSRS) Last Done: 06/07/25 04:42
*Nursing Disposition Last Done: 06/07/25 09:30
ED-Musculoskeletal Assessment Last Done: 06/07/25 04:58
ED- Neurological Assessment Last Done: 06/07/25 04:58
ED-Skin Assessment Last Done: 06/07/25 04:58
Discharge Date and Time
Discharge Date/Time: 06/07/25 09:43
Print Language: SRI LANKAN
--- NOTE | 2025-06-07 08:32 | CM ---
Chart reviewed. CM consult completed
Spoke with PT who recommends him to go home with [facility] PT and OT
PT is providing a walker in ED for his ambulation
is in agreement with him discharging with [facility]
was given a choice of [facility], [facility] and [facility]
would like to work with [facility]
Anisha Samson [facility] liasian to talk with at ED
CM gave a list of private [employer] agencies to hire some help at home
Per his son is going to [place] tomorrow and there is not much help available
is willing to drive him home at DC
no other questions at this time
--- NOTE | 2025-06-07 08:44 | VNURNOTE ---
Home Health Liaison met with patient and spouse at bedside to discuss [facility] nurse/therapy, visits, schedule and homebound status. Patient mostly dozing during encounter. [place] with spouse Cathie. She is agreeable and understands that visits at
home will be 2-3 x per week to assess and teach medical management. Both are aware that [facility] will contact them for start of care within a week after discharge from . Provided contact number for [facility].
PM [facility] referral completed in Care Port.
== END 2025-06-07 09:43 | disposition home or self-care (01) ==
LOC: EMR 04:38
PROVIDERS: EMERGENCY PHYSICIAN Student in an Organized Health Care Education/Training Program; FAMILY PHYSICIAN Family Medicine
DX: S09.90XA Unspecified injury of head, initial encounter (principal); W06.XXXA Fall from bed, initial encounter; Y92.003 Bedroom of unspecified non-institutional (private) residence as the place of occurrence of the external cause; M54.2 Cervicalgia; R11.0 Nausea; R53.1 Weakness; R53.83 Other fatigue; R29.6 Repeated falls; Z95.5 Presence of coronary angioplasty implant and graft; Z86.73 Personal history of transient ischemic attack (TIA), and cerebral infarction without residual deficits; Z79.01 Long term (current) use of anticoagulants; I25.10 Atherosclerotic heart disease of native coronary artery without angina pectoris
CPT/HCPCS: 99285; 70450; 72125; 93005